=== PATIENT | female | born 1960 | race African-American/Black ===

== ENCOUNTER → 2017-10-17 | Day surgery (SDC) | payer OTHER ==
--- NOTE | 2017-10-21 14:15 | PATH ---
Surgical Pathology Report Patient Name: DOROTHEA ALONSO [facility]. Rec. #: [id number] /Age/Gender: 1960 (Age: 57) / F Account: [id number] Location: [facility] Taken: 10/17/2017 Received: 10/17/2017 Reported: 10/21/2017 Physicians: Hazel Dey Specimen(s) Received A: AXILLARY LYMPH NODE CORE BIOPSY AT .73CM B: RIGHT BREAST CORE BIOPSY AT 3.57 CM. Clinical History Palpable mass, nonpalpable lesion Ultrasound findings: Suspicious Final Diagnosis A. Axilla, lymph node, right, CorE biopsy: FRAGMENTS OF LYMPH NODE WITH MILD FOLLICULAR HYPERPLASIA. NO EVIDENCE OF INVOLVEMENT BY LYMPHOMA. SEE COMMENT. B. BREAST, RIGHT, CORE BIOPSY: Benign breast tissue with stromal fibrosis, microcysts, apocrine metaplasia, and periductal chronic inflammation. Comment: Part A, Flow cytometry immunophenotyping, performed on the concurrent sample ([id number]) did not detect clonal B cell populations or T-cell immunophenotypic aberrancies. This case was sent to Dr. Olaf Argueta from [facility], [place], [place] ([id number]) the diagnosis above reflects his opinion. Electronically Signed Tiffany Long M.D. Gross Description A. Received in formalin labeled "right axilla" are 3 cardona-yellow, cylindrical portions of fibroadipose tissue ranging from 1.4-1.7 cm in length and averaging 0.1 cm in diameter. The specimens are submitted in toto in one cassette. There is additional tissue received fresh and placed into RPMI solution sent to [facility] for flow cytometry. B. Received in formalin labeled "right 3:00," are 4 cardona-yellow fragments of fibroadipose tissue ranging from 0.2-0.5 cm in length and averaging 0.1 cm in diameter. The specimens are submitted in toto in one cassette. Total formalin fixation time: Between 6-10 hours 10/17/201710/17/2017
== END | disposition home or self-care (01) ==
LOC: JRADUS-SUR 10:36
PROVIDERS: ATTEND Family Medicine
PROC: 0HBT3ZX Excision of Right Breast, Percutaneous Approach, Diagnostic (ICD-10-PCS; principal; 2017-10-17)
PROC: 07D53ZX Extraction of Right Axillary Lymphatic, Percutaneous Approach, Diagnostic (ICD-10-PCS; 2017-10-17)
DX: N60.31 Fibrosclerosis of right breast (principal); N60.81 Other benign mammary dysplasias of right breast; R59.0 Localized enlarged lymph nodes
CPT/HCPCS: 19083; 19084

== ENCOUNTER 2019-04-09 10:48 | Inpatient (IN) | payer BC, OTHER ==
[2019-04-09] MEDS ORDERED: ALBUTEROL SO4 2.5/IPRATROPIUM 0.5 INH SOL 3 ML VIAL.NEB. NEB ONE ×3 (11:38→15:43)
[2019-04-09] MEDS ORDERED: methylPREDNISolone NA SUCC 125 MG/2 ML VIAL IVPB ONE (11:45)
--- NOTE | 2019-04-09 11:46 | PDOC ---
History of Present Illness - General Chief Complaint: Asthma Stated Complaint: CHEST PAIN/ ASTHMA Time Seen by Provider: 04/09/19 11:30 History Source: Patient Exam Limitations: No Limitations - History of Present Illness Initial Comments: 04/09/19 11:35 58-year-old female with history of frequent asthma exacerbation presents the emergency room with complaints of difficulty breathing, continual wheezing, coughing, and now with chest pain worsened with deep breathing and coughing. Patient states has seen Dr. Su, bi specialist in the past and had extra prednisone at home so on Tuesday and Tuesday she had taken 40 mg of prednisone. Patient also states has used her nebulizer for the past 2 days every 4-6 hours with no improvement. Is this a multiple visit Asthma Patient?: Yes Timing/Duration: reports: constant, getting worse Severity: reports: moderate Possible Cause: Yes: frequent episodes Modifying Factors: improves with: activity, albuterol inhaler, coughing Associated Symptoms: reports: chest pain/soreness, cough, shortness of breath, wheezing Past History - Travel Traveled outside of the country in the last 30 days: No Close contact w/someone who was outside of country & ill: No - Past Medical History Allergies/Adverse Reactions: Allergies Allergy/AdvReac Type Severity Reaction Status Date / Time gentamicin [Gentamicin] Allergy Verified 04/09/19 11:22 tobramycin Allergy Verified 04/09/19 11:22 Home Medications: Ambulatory Orders Albuterol Sulfate [Proair Hfa -] 1 - 2 inh PO TID PRN 04/10/15 Isosorbide Mononitrate [Imdur -] 30 mg PO DAILY 04/10/15 Losartan/Hydrochlorothiazide [Losartan-Hctz 100-25 mg Tab] 1 each PO DAILY 04/10 Montelukast Na [Singulair -] 10 mg PO HS 04/10/15 Nifedipine [Nifedical Xl] 30 mg PO DAILY 04/10/15 Nitroglycerin [Nitrostat] 0.4 mg SL PRN 04/10/15 predniSONE [Deltasone -] 40 mg PO TID 04/10/15 Anemia: Yes Asthma: Yes Cancer: No COPD: Yes HTN: Yes - Surgical History Abdominal Surgery: Yes - Immunization History Immunization Up to Date: Yes - Psycho Social/Smoking Cessation Hx Smoking Status: No Smoking History: Never smoked Have you smoked in the past 12 months: No Number of Cigarettes Smoked Daily: 0 Information on smoking cessation initiated: No Hx Alcohol Use: No Drug/Substance Use Hx: No Substance Use Type: None Patient Lives Alone: No Lives with/in: friend Review of Systems - Review of Systems Able to Perform ROS?: Yes Constitutional: No: Symptoms Reported HEENTM: No: Symptoms Reported Respiratory: Yes: Cough, Shortness of Breath, Wheezing Cardiac (ROS): Yes: Chest Pain ABD/GI: No: Symptoms Reported : No: Symptoms Reported Musculoskeletal: Yes: Muscle Pain Integumentary: No: Symptoms Reported Neurological: No: Symptoms reported Endocrine: No: Symptoms Reported Hematologic/Lymphatic: No: Symptoms Reported *Physical Exam - Vital Signs Last Vital Signs Temp Pulse Resp BP Pulse Ox 98.6 F 82 18 145/84 96 04/09/19 11:24 04/09/19 11:24 04/09/19 11:24 04/09/19 11:24 04/09/19 11:24 - Physical Exam General Appearance: Yes: Nourished, Appropriately Dressed. No: Apparent Distress HEENT: positive: EOMI, RAMU, TMs Normal, Pharynx Normal. negative: Pale Conjunctivae Neck: positive: Supple Respiratory/Chest: positive: Accessory Muscle Use (intercostal), Wheezing ( inspiratory and expiratory bilaterally). negative: Decreased Breath Sounds Cardiovascular: positive: Regular Rhythm, Regular Rate. negative: Murmur Gastrointestinal/Abdominal: positive: Soft. negative: Tenderness Extremity: positive: Normal Inspection Integumentary: positive: Normal Color, Warm, Moist Neurologic: positive: Motor Strength 5/5 (ambulatory) ED Treatment Course - LABORATORY CBC & Chemistry Diagram: 04/09/19 12:10 04/09/19 12:10 Medical Decision Making - Medical Decision Making 04/09/19 12:39 Chief complaint: Worsening wheezing shortness of breath and cough for the past 3 days unrelieved with prednisone and DuoNeb. Patient followed by Dr. Su bi specialist. Exam: Patient with mild respiratory distress along with assessment muscle usage and wheezing bilaterally inspiratory and expiratory. Patient speaking approximate 5-7 sentences and then pausing to catch her breath. Oxygen level 97-98% on room air Plan: Labs, EKG, chest x-ray Solu-Medrol DuoNeb 4 will consult bi specialist shortly 04/09/19 13:42 Laboratory Tests 04/09/19 04/09/19 12:10 12:10 WBC 8.1 Hgb 13.8 Hct 42.2 Absolute Neuts (auto) 4.6 Sodium 139 Potassium 4.0 Chloride 107 Carbon Dioxide 31 Anion Gap 0 L BUN 8.7 Creatinine 0.8 Est GFR (CKD-EPI)AfAm 93.53 Est GFR (CKD-EPI)NonAf 80.70 Random Glucose 84 Calcium 8.6 Total Bilirubin 0.5 AST 17 ALT 22 Alkaline Phosphatase 82 Creatine Kinase 190 Creatine Kinase Index 1.0 CK-MB (CK-2) 2.0 Troponin I < 0.02 Total Protein 7.1 Albumin 3.4 04/09/19 13:43 Found patient sleeping with an oxygen saturation of 94% on room air. Awoke patient for reexam and sats pulled up to 98%. Patient still with continual wheezing on inspiration left to the right lobe patient will go for chest x-ray and received 2 more DuoNeb's. Case discussed also with bi specialist who recommends admission and will consult on patient 04/09/19 15:59 CXR Shows no evidence of active pulmonary disease. Patient reevaluated and continues to complain of mild shortness of breath with minimal exertion and wheezing auscultated to the right lobe. Will discuss admission with medicine on- call 04/09/19 16:[address] angélica goyal to [facility]. Patient states just went to the bathroom in the ER had to stop twice to catch her breath patient's O2 sat 97% upon return from the restroom Discharge - Discharge Information Problems reviewed: Yes Clinical Impression/Diagnosis: Asthma exacerbation - Admission Yes - Follow up/Referral - Patient Discharge Instructions - Post Discharge Activity
[2019-04-09] MEDS ORDERED: methylPREDNISolone NA SUCC 125 MG/2 ML VIAL ONE (11:53)
[2019-04-09] MEDS: ALBUTEROL SO4 2.5/IPRATROPIUM 0.5 INH SOL 3 ML VIAL.NEB. NEB SCH ×6 (12:11→15:42)
[2019-04-09 12:38] LABS: BASO % 0.6 % (0-2.0); EOS % 3.5 % (0-4.5); HEMATOCRIT 42.2 % (32.4-45.2); HEMOGLOBIN 13.8 GM/dL (10.7-15.3); LYMPH % 32.7 % (8-40); MCH 25.8 pg (25.7-33.7); MCHC 32.6 g/dl (32.0-36.0); MEAN CELL VOLUME 79.2 fl (80-96); MEAN PLT VOLUME 8.5 fl (7.5-11.1); MONO % 6.1 % (3.8-10.2); NEUT % 57.1 % (42.8-82.8); PLATELET COUNT 242 K/MM3 (134-434); RBC 5.33 M/mm3 (3.60-5.2); RDW 14.7 % (11.6-15.6); WHITE BLOOD COUNT 8.1 K/mm3 (4.0-10.0)
[2019-04-09 13:10] LABS: ALBUMIN 3.4 g/dl (3.4-5.0); ALK PHOS 82 U/L (45-117); ANION GAP 0 MMOL/L (8-16); BILIRUBIN,TOTAL 0.5 mg/dL (0.2-1); BLOOD UREA NITROGEN 8.7 mg/dL (7-18); CALCIUM 8.6 mg/dL (8.5-10.1); CHLORIDE 107 mmol/L (98-107); CO2 31 mmol/L (21-32); CREATININE 0.8 mg/dL (0.55-1.3); GLUCOSE,RANDOM 84 mg/dL (74-106); SGOT/AST 17 U/L (15-37); SGPT/ALT 22 U/L (13-61); SODIUM 139 mmol/L (136-145); TOT PROT 7.1 g/dl (6.4-8.2)
--- NOTE | 2019-04-09 18:27 | HP ---
Admitting History and Physical - Primary Care Physician PCP: Laura Schmitz - Admission History of Present Illness: 58-year-old female with history of frequent asthma exacerbation presents the emergency room with complaints of difficulty breathing, continual wheezing, coughing, and now with chest pain worsened with deep breathing and coughing. Patient states has seen Dr. Su, silk printer in the past and had extra prednisone at home so on Tuesday and Tuesday she had taken 40 mg of prednisone. Patient also states has used her nebulizer for the past 2 days every 4-6 hours with no improvement. - Past Medical History ...LMP: 08/09/11 - Smoking History Smoking history: Never smoked Have you smoked in the past 12 months: No Aproximately how many cigarettes per day: 0 - Alcohol/Substance Use Hx Alcohol Use: No Home Medications - Allergies Allergies/Adverse Reactions: Allergies Allergy/AdvReac Type Severity Reaction Status Date / Time gentamicin [Gentamicin] Allergy Verified 04/09/19 11:22 tobramycin Allergy Verified 04/09/19 11:22 - Home Medications Home Medications: Ambulatory Orders Albuterol Sulfate [Proair Hfa -] 1 - 2 inh PO TID PRN 04/10/15 Isosorbide Mononitrate [Imdur -] 30 mg PO DAILY 04/10/15 Losartan/Hydrochlorothiazide [Losartan-Hctz 100-25 mg Tab] 1 each PO DAILY 04/10 Montelukast Na [Singulair -] 10 mg PO HS 04/10/15 Nifedipine [Nifedical Xl] 30 mg PO DAILY 04/10/15 Nitroglycerin [Nitrostat] 0.4 mg SL PRN 04/10/15 predniSONE [Deltasone -] 40 mg PO TID 04/10/15 Physical Examination Vital Signs: Vital Signs Temperature 98.5 F 04/09/19 17:12 Pulse Rate 88 04/09/19 17:12 Respiratory Rate 19 04/09/19 17:12 Blood Pressure 165/89 04/09/19 17:12 O2 Sat by Pulse Oximetry (%) 96 04/09/19 17:12 Constitutional: Yes: No Distress HENT: Yes: Atraumatic Neck: Yes: Supple Cardiovascular: Yes: Regular Rate and Rhythm Respiratory: Yes: CTA Bilaterally Gastrointestinal: Yes: Normal Bowel Sounds Extremities: Yes: WNL Neurological: Yes: Alert, Oriented Labs: CBC, BMP 04/09/19 12:10 04/09/19 12:10 Problem List - Problems (1) Asthma exacerbation Assessment/Plan: iv steroids prn nebs pulmonary consult Code(s): J45.901 - UNSPECIFIED ASTHMA WITH (ACUTE) EXACERBATION (2) HTN (hypertension) Assessment/Plan: on meds monitor Code(s): I10 - ESSENTIAL (PRIMARY) HYPERTENSION Assessment/Plan Laboratory Tests 04/09/19 04/09/19 12:10 12:10 WBC 8.1 RBC 5.33 H Hgb 13.8 Hct 42.2 MCV 79.2 L MCH 25.8 MCHC 32.6 RDW 14.7 Plt Count 242 MPV 8.5 Absolute Neuts (auto) 4.6 Neutrophils % 57.1 Lymphocytes % 32.7 Monocytes % 6.1 Eosinophils % 3.5 Basophils % 0.6 Nucleated RBC % 0 Sodium 139 Potassium 4.0 Chloride 107 Carbon Dioxide 31 Anion Gap 0 L BUN 8.7 Creatinine 0.8 Est GFR (CKD-EPI)AfAm 93.53 Est GFR (CKD-EPI)NonAf 80.70 Random Glucose 84 Calcium 8.6 Total Bilirubin 0.5 AST 17 ALT 22 Alkaline Phosphatase 82 Creatine Kinase 190 Creatine Kinase Index 1.0 CK-MB (CK-2) 2.0 Troponin I < 0.02 Total Protein 7.1 Albumin 3.4 Active Medications Generic Name Dose Route Start Last Admin Trade Name Freq PRN Reason Stop Dose Admin Albuterol Sulfate 1 amp 04/10/19 10:14 04/10/19 11:40 Ventolin 0.083% Nebulizer Soln - NEB 1 amp Q4H PRN Administration SHORT OF BREATH/WHEEZING Albuterol/Ipratropium 1 amp 04/10/19 14:00 04/10/19 14:30 Duoneb - NEB 1 amp RTID JUDY Administration Hydrochlorothiazide 25 mg 04/10/19 10:00 04/10/19 10:30 Hctz - PO 25 mg DAILY JUDY Administration Ibuprofen 600 mg 04/09/19 21:57 04/09/19 22:30 Motrin - PO 600 mg Q6H PRN Administration FEVER AND PAIN SCALE 6-10 Isosorbide Mononitrate 30 mg 04/10/19 10:00 04/10/19 10:30 Imdur - PO 30 mg DAILY JUDY Administration Losartan Potassium 100 mg 04/10/19 11:45 04/10/19 12:05 Cozaar - PO 100 mg DAILY JUDY Administration Methylprednisolone Sodium Succinate 60 mg 04/10/19 02:00 04/10/19 18:31 Solu-Medrol - IVPUSH 60 mg Q8H-IV JUDY Administration Montelukast Sodium 10 mg 04/09/19 22:00 04/09/19 21:09 Singulair - PO 10 mg HS JUDY Administration Nifedipine 30 mg 04/10/19 10:00 04/10/19 12:05 Procardia Xl - PO Not Given DAILY JUDY
[2019-04-09] MEDS ORDERED: ACETAMINOPHEN 500 MG TABLET (FP) PO ONE (18:38)
[2019-04-09] MEDS ORDERED: ACETAMINOPHEN 325 MG TABLET (FP) ONE (18:52)
[2019-04-09] MEDS ORDERED: ALBUTEROL SO4 2.5/IPRATROPIUM 0.5 INH SOL 3 ML VIAL.NEB. NEB PRN (19:09)
[2019-04-09] MEDS: MONTELUKAST NA 10 MG TABLET PO SCH (21:09)
[2019-04-09] MEDS: IBUPROFEN 600 MG TABLET (FP) PO PRN (22:30)
[2019-04-10] MEDS ORDERED: NIFEdipine E.R. 30 MG TABLET (FP) PO ONE (01:45)
[2019-04-10] MEDS: methylPREDNISolone NA SUCC 40 MG/1 ML VIAL IVPUSH SCH ×3 (01:55→18:31)
--- NOTE | 2019-04-10 02:09 | HOSP ---
Subjective - Review of Symptoms Events since last encounter: Hospitalist Encounter Notified by the RN that the patient's BP was elevated and she did not take her BP meds yesterday morning. Now being told that the patient is having midsternal chest pain and is SOB. Arrived to bedside, patient is asleep but arousable, oriented reports midsternal CP non radiating, after ambulating from the bathroom. PE- see EMR Plan: EKG Troponin Procardia 30mg po ordered prior Physical Examination Vital Signs: Vital Signs Temperature 98.4 F 04/09/19 23:00 Pulse Rate 94 H 04/10/19 01:34 Respiratory Rate 22 H 04/10/19 01:34 Blood Pressure 200/130 H 04/10/19 01:35 O2 Sat by Pulse Oximetry (%) 97 04/09/19 23:00 Constitutional: Yes: Mild Distress, Obese Eyes: Yes: WNL, Conjunctiva Clear, EOM Intact, PERRL HENT: Yes: WNL, Atraumatic, Normocephalic Neck: Yes: WNL, Supple, Trachea Midline Cardiovascular: Yes: WNL, Regular Rate and Rhythm, S1, S2 Respiratory: Yes: Rhonchi, SOB, SOB on Exertion, Wheezes Gastrointestinal: Yes: WNL, Normal Bowel Sounds, Soft, Abdomen, Obese Edema: No Peripheral Pulses WNL: Yes Neurological: Yes: WNL, Alert, Oriented, Cran Nerves II-XII Intact ...Motor Strength: WNL Psychiatric: Yes: WNL, Alert, Oriented Labs: CBC, BMP 04/09/19 12:10 04/09/19 12:10 Hospitalist Encounter Outcome: EKG reviewed SR with PVCs new compared to prior study Troponin < 0.02 Repeat BP 158/85, P 81, patient reports to RN she is feeling better Will continue to monitor Recommendations/Interventions: Consider transfer to telemetry if condition worsens Critical Care Total Critical Care Time (in minutes): 32 Critical Care Statement: The care of this patient involved high complexity decision making to prevent further life threatening deterioration of the patient 's condition and/or to evaluate & treat vital organ system(s) failure or risk of failure.
[2019-04-10 03:08] LABS: INR 1.06 (0.83-1.09); PROTHROMBIN TIME (PATIENT) 12.5 SEC (9.7-13.0)
[2019-04-10 03:11] LABS: ACTIVATED PTT 29.6 SECONDS (25.2-36.5)
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
[2019-04-10] MEDS ORDERED: PATIENT'S OWN MEDICATION (NON-FORMULARY) (Losartan/Hydrochlorothiazide [Losartan-Hctz 100- PO SCH (10:00)
[2019-04-10] MEDS ORDERED: FLU VACCINE QUAD 60 MCG/0.5 ML (MDV 19-20) IM ONE (10:00)
[2019-04-10] MEDS ORDERED: LOSARTAN POTASSIUM 100 MG TABLET PO SCH (10:00)
[2019-04-10] MEDS ORDERED: PT OWN MED DRAWER 7, Y5N ONE (10:09)
--- NOTE | 2019-04-10 10:13 | EKG ---
Test Reason : Blood Pressure : / mmHG Vent. Rate : 084 BPM Atrial Rate : 084 BPM P-R Int : 136 ms QRS Dur : 080 ms QT Int : 368 ms P-R-T Axes : 068 056 061 degrees QTc Int : 434 ms POOR DATA QUALITY, INTERPRETATION MAY BE ADVERSELY AFFECTED NORMAL SINUS RHYTHM BIATRIAL ENLARGEMENT LEFT VENTRICULAR HYPERTROPHY T WAVE ABNORMALITY, CONSIDER LATERAL ISCHEMIA ABNORMAL ECG Confirmed by Kevin Cain MD ([id number]) on 04/10/2019 10:13:16 AM Referred By: Confirmed By:Kevin Cain MD
--- NOTE | 2019-04-10 10:21 | PN ---
Teaching Attending Note Name of Resident: Jennifer Miles ATTENDING PHYSICIAN STATEMENT I saw and evaluated the patient. I reviewed the resident's note and discussed the case with the resident. I agree with the resident's findings and plan as documented. SUBJECTIVE: Patient well known to me from the outpatient setting. Moderate persistent asthma. No intubations, not steroid dependent, PEF > 300. Mild OSAS diagnosed by NPSG in 10/2015: RDI 13. 4 with moderate O2 desaturation to 75%. Prescribed CPAP @ 11 cm H2O which she could not tolerate. Had a MAD fabricated which she does not use. Additional history of vertigo/ Meniere's disease, HTN, uncoiled aorta, obesity, and MN (non obstructive). Admitted via the ER due to 3 days worsening SOB that have not been responding to her medications. No travel history or sick contacts. (+) recent mold exposure. Intake & Output 04/07/19 04/08/19 04/09/19 04/10/19 23:59 23:59 23:59 23:59 Intake Total 200 200 Balance 200 200 Weight 236 lb 4.8 oz Last Vital Signs Temp Pulse Resp BP Pulse Ox 99.1 F 87 20 158/70 97 04/10/19 07:50 04/10/19 07:50 04/10/19 07:50 04/10/19 07:50 04/09/19 23:00 Active Medications Albuterol Sulfate (Ventolin 0.083% Nebulizer Soln -) 1 amp NEB Q4H PRN PRN Reason: SHORT OF BREATH/WHEEZING Albuterol/Ipratropium (Duoneb -) 1 amp NEB RTID [facility] Hydrochlorothiazide (Hctz -) 25 mg PO DAILY [facility] Ibuprofen (Motrin -) 600 mg PO Q6H PRN PRN Reason: FEVER Last Admin: 04/09/19 22:30 Dose: 600 mg Isosorbide Mononitrate (Imdur -) 30 mg PO DAILY [facility] Losartan Potassium (Losartan Potassium) 100 mg PO DAILY [facility] Methylprednisolone Sodium Succinate (Solu-Medrol -) 60 mg IVPUSH Q8H-IV [facility] Last Admin: 04/10/19 01:55 Dose: 60 mg Montelukast Sodium (Singulair -) 10 mg PO HS [facility] Last Admin: 04/09/19 21:09 Dose: 10 mg Nifedipine (Procardia Xl -) 30 mg PO DAILY [facility] Constitutional: Yes: Mild Distress, Obese Eyes: Yes: WNL, Conjunctiva Clear, EOM Intact, PERRL HENT: Yes: WNL, Atraumatic, Normocephalic Neck: Yes: WNL, Supple, Trachea Midline Cardiovascular: Yes: WNL, Regular Rate and Rhythm, S1, S2 Respiratory: Yes: Expiratory wheezing, bilateral rhonchi, SOB, SOB on Exertion. Gastrointestinal: Yes: WNL, Normal Bowel Sounds, Soft, Abdomen, Obese Edema: No Peripheral Pulses WNL: Yes Neurological: Yes: WNL, Non-focal ...Motor Strength: WNL Psychiatric: Yes: WNL, Alert, Oriented Labs: Laboratory Results - last 24 hr 04/09/19 04/09/19 04/10/19 12:10 12:10 02:15 WBC 8.1 RBC 5.33 H Hgb 13.8 Hct 42.2 MCV 79.2 L MCH 25.8 MCHC 32.6 RDW 14.7 Plt Count 242 MPV 8.5 Absolute Neuts (auto) 4.6 Neutrophils % 57.1 Lymphocytes % 32.7 Monocytes % 6.1 Eosinophils % 3.5 Basophils % 0.6 Nucleated RBC % 0 PT with INR INR PTT (Actin FS) Sodium 139 Potassium 4.0 Chloride 107 Carbon Dioxide 31 Anion Gap 0 L BUN 8.7 Creatinine 0.8 Est GFR (CKD-EPI)AfAm 93.53 Est GFR (CKD-EPI)NonAf 80.70 Random Glucose 84 Calcium 8.6 Total Bilirubin 0.5 AST 17 ALT 22 Alkaline Phosphatase 82 Creatine Kinase 190 Creatine Kinase Index 1.0 CK-MB (CK-2) 2.0 Troponin I < 0.02 < 0.02 Total Protein 7.1 Albumin 3.4 04/10/19 02:15 WBC RBC Hgb Hct MCV MCH MCHC RDW Plt Count MPV Absolute Neuts (auto) Neutrophils % Lymphocytes % Monocytes % Eosinophils % Basophils % Nucleated RBC % PT with INR 12.50 INR 1.06 PTT (Actin FS) 29.6 Sodium Potassium Chloride Carbon Dioxide Anion Gap BUN Creatinine Est GFR (CKD-EPI)AfAm Est GFR (CKD-EPI)NonAf Random Glucose Calcium Total Bilirubin AST ALT Alkaline Phosphatase Creatine Kinase Creatine Kinase Index CK-MB (CK-2) Troponin I Total Protein Albumin - Problems (1) Asthma exacerbation Code(s): J45.901 - UNSPECIFIED ASTHMA WITH (ACUTE) EXACERBATION IMP: AE of Moderate Persistent Asthma Suspected Viral Syndrome Do not suspect PNA Mild OSAS with Moderate oxygen desaturation, currently not on treatment Vertigo/ Meniere's disease HTN History of an uncoiled aorta Obesity PLAN: Medrol BD TX standing and PRN Daily AM PEF measurement O2 as needed Monitor off ABX VTE prophylaxis Singulair Need to reassess IgE level after DC Will need formal re-evaluation of OSAS after DC No smoking counseled Will follow Thank you. Dr Sofia
[2019-04-10] MEDS: ISOSORBIDE MONONITRATE 30 MG TAB.SR.24H (FP) PO SCH (10:30)
[2019-04-10] MEDS: HYDROCHLOROTHIAZIDE 25 MG TABLET (FP) PO SCH (10:30)
--- NOTE | 2019-04-10 11:36 | EKG ---
Test Reason : Blood Pressure : / mmHG Vent. Rate : 091 BPM Atrial Rate : 091 BPM P-R Int : 140 ms QRS Dur : 084 ms QT Int : 354 ms P-R-T Axes : 063 037 091 degrees QTc Int : 435 ms SINUS RHYTHM WITH OCCASIONAL PREMATURE VENTRICULAR COMPLEXES POSSIBLE LEFT ATRIAL ENLARGEMENT LEFT VENTRICULAR HYPERTROPHY NONSPECIFIC T WAVE ABNORMALITY ABNORMAL ECG WHEN COMPARED WITH ECG OF 09-APR-2019 10:52, PREMATURE VENTRICULAR COMPLEXES ARE NOW PRESENT NONSPECIFIC T WAVE ABNORMALITY, IMPROVED IN INFERIOR LEADS Confirmed by Kevin Cain MD ([id number]) on 04/10/2019 11:35:42 AM Referred By: Confirmed By:Kevin Cain MD
[2019-04-10] MEDS: ALBUTEROL SO4 0.083% IH SOL 2.5 MG/3 ML VIAL.NEB. NEB PRN (11:40)
[2019-04-10] MEDS: NIFEdipine E.R. 30 MG TABLET (FP) PO SCH (12:05)
[2019-04-10] MEDS: LOSARTAN POTASSIUM 50 MG TABLET (FP) PO SCH (12:05)
[2019-04-10] MEDS: ALBUTEROL SO4 2.5/IPRATROPIUM 0.5 INH SOL 3 ML VIAL.NEB. NEB SCH ×2 (14:30→20:15)
--- NOTE | 2019-04-10 19:40 | PN ---
Progress Note, Physician - Current Medication List Current Medications: Active Medications Albuterol Sulfate (Ventolin 0.083% Nebulizer Soln -) 1 amp NEB Q4H PRN PRN Reason: SHORT OF BREATH/WHEEZING Last Admin: 04/10/19 11:40 Dose: 1 amp Albuterol/Ipratropium (Duoneb -) 1 amp NEB RTID [facility] Last Admin: 04/10/19 14:30 Dose: 1 amp Hydrochlorothiazide (Hctz -) 25 mg PO DAILY [facility] Last Admin: 04/10/19 10:30 Dose: 25 mg Ibuprofen (Motrin -) 600 mg PO Q6H PRN PRN Reason: FEVER AND PAIN SCALE 6-10 Last Admin: 04/09/19 22:30 Dose: 600 mg Isosorbide Mononitrate (Imdur -) 30 mg PO DAILY [facility] Last Admin: 04/10/19 10:30 Dose: 30 mg Losartan Potassium (Cozaar -) 100 mg PO DAILY [facility] Last Admin: 04/10/19 12:05 Dose: 100 mg Methylprednisolone Sodium Succinate (Solu-Medrol -) 60 mg IVPUSH Q8H-IV [facility] Last Admin: 04/10/19 18:31 Dose: 60 mg Montelukast Sodium (Singulair -) 10 mg PO HS [facility] Last Admin: 04/09/19 21:09 Dose: 10 mg Nifedipine (Procardia Xl -) 30 mg PO DAILY [facility] Last Admin: 04/10/19 12:05 Dose: Not Given - Objective Vital Signs: Vital Signs Temperature 98.3 F 04/10/19 18:00 Pulse Rate 108 H 04/10/19 18:00 Respiratory Rate 20 04/10/19 18:00 Blood Pressure 155/114 H 04/10/19 18:00 O2 Sat by Pulse Oximetry (%) 97 04/09/19 23:00 Constitutional: Yes: No Distress HENT: Yes: Atraumatic Neck: Yes: Supple Cardiovascular: Yes: Regular Rate and Rhythm Respiratory: Yes: CTA Bilaterally Gastrointestinal: Yes: Normal Bowel Sounds Extremities: Yes: WNL Edema: No Neurological: Yes: Alert, Oriented Labs: CBC, BMP 04/09/19 12:10 04/09/19 12:10 INR, PTT INR 1.06 (0.83-1.09) 04/10/19 02:15 Problem List - Problems (1) Asthma exacerbation Assessment/Plan: iv steroids prn nebs pulmonary consult Code(s): J45.901 - UNSPECIFIED ASTHMA WITH (ACUTE) EXACERBATION (2) HTN (hypertension) Assessment/Plan: on meds monitor will get cardio consult Code(s): I10 - ESSENTIAL (PRIMARY) HYPERTENSION
[2019-04-10] MEDS: MONTELUKAST NA 10 MG TABLET PO SCH (21:58)
[2019-04-10] MEDS: IBUPROFEN 600 MG TABLET (FP) PO PRN (22:02)
[2019-04-11] MEDS: methylPREDNISolone NA SUCC 40 MG/1 ML VIAL IVPUSH SCH ×4 (02:31→22:04)
[2019-04-11] MEDS: ALBUTEROL SO4 2.5/IPRATROPIUM 0.5 INH SOL 3 ML VIAL.NEB. NEB SCH ×3 (08:11→20:45)
[2019-04-11] MEDS: LOSARTAN POTASSIUM 50 MG TABLET (FP) PO SCH (09:37)
[2019-04-11] MEDS: ISOSORBIDE MONONITRATE 30 MG TAB.SR.24H (FP) PO SCH (09:37)
[2019-04-11] MEDS: HYDROCHLOROTHIAZIDE 25 MG TABLET (FP) PO SCH (09:37)
[2019-04-11] MEDS: NIFEdipine E.R. 30 MG TABLET (FP) PO SCH (09:37)
--- NOTE | 2019-04-11 13:09 | PN ---
Progress Note, Physician History of Present Illness: pulmonary alert,feeling better,less dyspneic - Current Medication List Current Medications: Active Medications Albuterol Sulfate (Ventolin 0.083% Nebulizer Soln -) 1 amp NEB Q4H PRN PRN Reason: SHORT OF BREATH/WHEEZING Last Admin: 04/10/19 11:40 Dose: 1 amp Albuterol/Ipratropium (Duoneb -) 1 amp NEB RTID [facility] Last Admin: 04/11/19 08:11 Dose: 1 amp Hydrochlorothiazide (Hctz -) 25 mg PO DAILY [facility] Last Admin: 04/11/19 09:37 Dose: 25 mg Ibuprofen (Motrin -) 600 mg PO Q6H PRN PRN Reason: FEVER AND PAIN SCALE 6-10 Last Admin: 04/10/19 22:02 Dose: 600 mg Isosorbide Mononitrate (Imdur -) 30 mg PO DAILY [facility] Last Admin: 04/11/19 09:37 Dose: 30 mg Losartan Potassium (Cozaar -) 100 mg PO DAILY [facility] Last Admin: 04/11/19 09:37 Dose: 100 mg Methylprednisolone Sodium Succinate (Solu-Medrol -) 60 mg IVPUSH Q8H-IV [facility] Last Admin: 04/11/19 10:47 Dose: Not Given Montelukast Sodium (Singulair -) 10 mg PO HS [facility] Last Admin: 04/10/19 21:58 Dose: 10 mg Nifedipine (Procardia Xl -) 30 mg PO DAILY [facility] Last Admin: 04/11/19 09:37 Dose: 30 mg - Objective Vital Signs: Vital Signs Temperature 98.3 F 04/11/19 09:42 Pulse Rate 90 04/11/19 09:42 Respiratory Rate 20 04/11/19 09:42 Blood Pressure 158/98 04/11/19 09:42 O2 Sat by Pulse Oximetry (%) 96 04/10/19 10:30 Constitutional: Yes: Well Nourished, Calm Eyes: Yes: WNL HENT: Yes: WNL Neck: Yes: WNL Cardiovascular: Yes: Regular Rate and Rhythm, S1, S2 Respiratory: Yes: Wheezes (few wheezes) Gastrointestinal: Yes: Normal Bowel Sounds, Soft Extremities: Yes: WNL Edema: No Labs: Problem List - Problems (1) HTN (hypertension) Code(s): I10 - ESSENTIAL (PRIMARY) HYPERTENSION (2) Vertigo Code(s): R42 - DIZZINESS AND GIDDINESS Assessment/Plan - Problems (1) Asthma exacerbation Code(s): J45.901 - UNSPECIFIED ASTHMA WITH (ACUTE) EXACERBATION IMP: AE of Moderate Persistent Asthma improving Suspected Viral Syndrome Do not suspect PNA Mild OSAS with Moderate oxygen desaturation, currently not on treatment Vertigo/ Meniere's disease HTN History of an uncoiled aorta Obesity PLAN: Medrol taper BD TX standing and PRN Daily AM PEF measurement O2 as needed VTE prophylaxis Singulair Will need formal re-evaluation of OSAS after DC DR BERNAL
[2019-04-11] MEDS: IBUPROFEN 600 MG TABLET (FP) PO PRN (15:00)
[2019-04-11] MEDS ORDERED: methylPREDNISolone NA SUCC 40 MG/1 ML VIAL IVPUSH SCH (15:02)
--- NOTE | 2019-04-11 15:36 | CON.CARD ---
Consult Consult Specialty:: Cardiology Referred by:: Laura Schmitz MD Reason for Consultation:: H/o HI and nonobstructive CAD, chest pain, HTN - History of Present Illness Chief Complaint: Chest pain, hypertensive urgency History of Present Illness: Patient is 58 yo AAF w/ h/o moderate persistent asthma w/o h/o intubations, not steroid dependent, PEF > 300, also mild OSAS diagnosed by NPSG in 10/2015: RDI 13. 4 with moderate O2 desaturation to 75%. Prescribed CPAP @ 11 cm H2O which she could not tolerate. Had a MAD fabricated which she does not use, also history of vertigo/ Meniere's disease, HTN, uncoiled aorta, obesity, and [place] ( non obstructive). Admitted via the ER due to 3 days worsening SOB that have not been responding to her medications, (+) recent mold exposure. She experienced episode of sharp retrosternal chest pain associated with dyspnea in context of elevated BP 210/124, denies near or true syncope, palpitations, orthopnea, PND or LE edema. - History Source History Provided By: Patient Limitations to Obtaining History: No Limitations - Past Medical History Cardio/Vascular: Yes: CAD, HTN Pulmonary: Yes: Asthma, COPD, Sleep Apnea ...LMP: 08/09/11 - Alcohol/Substance Use Hx Alcohol Use: No - Smoking History Smoking history: Never smoked Have you smoked in the past 12 months: No Aproximately how many cigarettes per day: 0 - Social History Usual Living Arrangement: Alone ADL: Independent History of Recent Travel: No Home Medications - Allergies Allergies/Adverse Reactions: Allergies Allergy/AdvReac Type Severity Reaction Status Date / Time gentamicin [Gentamicin] Allergy Verified 04/09/19 11:22 tobramycin Allergy Verified 04/09/19 11:22 - Home Medications Home Medications: Ambulatory Orders Albuterol Sulfate [Proair Hfa -] 1 - 2 inh PO TID PRN 04/10/15 Isosorbide Mononitrate [Imdur -] 30 mg PO DAILY 04/10/15 Losartan/Hydrochlorothiazide [Losartan-Hctz 100-25 mg Tab] 1 each PO DAILY 04/10 Montelukast Na [Singulair -] 10 mg PO HS 04/10/15 Nifedipine [Nifedical Xl] 30 mg PO DAILY 04/10/15 Nitroglycerin [Nitrostat] 0.4 mg SL PRN 04/10/15 predniSONE [Deltasone -] 40 mg PO TID 04/10/15 Review of Systems - Review of Systems Cardiovascular: reports: Chest Pain Respiratory: reports: SOB, SOB on Exertion, Wheezing Vital Signs: Vital Signs Temperature 98.3 F 04/11/19 09:42 Pulse Rate 90 04/11/19 09:42 Respiratory Rate 20 04/11/19 09:42 Blood Pressure 158/98 04/11/19 09:42 O2 Sat by Pulse Oximetry (%) 96 04/10/19 10:30 Constitutional: Yes: No Distress, Calm Neck: Yes: Supple Respiratory: Yes: Regular, Diminished, Wheezes Gastrointestinal: Yes: Normal Bowel Sounds, Soft, Abdomen, Obese Cardiovascular: Yes: Regular Rate and Rhythm JVD: No Carotid Bruit: No PMI: Non-Displaced Heart Sounds: Yes: S1, S2 Edema: No - Other Data Labs, Other Data: CBC, BMP 04/09/19 12:10 04/09/19 12:10 INR, PTT INR 1.06 (0.83-1.09) 04/10/19 02:15 NSR @ 91 LVH, PVC Ejection Fraction %: LVEF > or = 40 % Imaging - Results Chest X-ray: Report Reviewed (NAD) Problem List - Problems (1) Old myocardial infarction Code(s): I25.2 - OLD MYOCARDIAL INFARCTION (2) Asthma exacerbation Code(s): J45.901 - UNSPECIFIED ASTHMA WITH (ACUTE) EXACERBATION Qualifiers: Asthma severity: moderate (3) HTN (hypertension) Code(s): I10 - ESSENTIAL (PRIMARY) HYPERTENSION Qualifiers: Hypertension type: essential hypertension Qualified Code(s): I10 - Essential (primary) hypertension (4) SUSAN (obstructive sleep apnea) Code(s): G47.33 - OBSTRUCTIVE SLEEP APNEA (ADULT) (PEDIATRIC) (5) Chest pain Code(s): R07.9 - CHEST PAIN, UNSPECIFIED Qualifiers: Ischemic chest pain type: stable angina pectoris Assessment/Plan 1. Chest pain syndrome h/o nonobstructive CAD 2. AE of moderate persistent asthma with suspected viral syndrome 3. Mild OSAS with moderate oxygen desaturation, currently not on treatment 4. HTN urgency 5. Vertigo/ Meniere's disease 6. History of an uncoiled aorta 7. Obesity PLAN: 1. Ruled out for [place], check echocardiogram to assess ventricular and valve fxn 2. IV steroid taper with GI protection, BD, O2 as needed, Singulair, will need formal re-evaluation of OSAS after DC 3. Once asthma flare abates, would perform dobutamine echo to r/o CAD/ischemia 4. Continue Imdur 30 qd, Hyzaar 100/25 qd, Procardia XL 30 qd, NTG as needed, d/ c Motrin 5. Thank you for consultative opportunity, further recommenations to follow
[2019-04-11 16:19] VITALS: BMI 38.0
--- NOTE | 2019-04-11 18:07 | PN ---
Progress Note, Physician - Current Medication List Current Medications: Active Medications Albuterol Sulfate (Ventolin 0.083% Nebulizer Soln -) 1 amp NEB Q4H PRN PRN Reason: SHORT OF BREATH/WHEEZING Last Admin: 04/10/19 11:40 Dose: 1 amp Albuterol/Ipratropium (Duoneb -) 1 amp NEB RTID [facility] Last Admin: 04/11/19 14:18 Dose: 1 amp Hydrochlorothiazide (Hctz -) 25 mg PO DAILY [facility] Last Admin: 04/11/19 09:37 Dose: 25 mg Ibuprofen (Motrin -) 600 mg PO Q6H PRN PRN Reason: FEVER AND PAIN SCALE 6-10 Last Admin: 04/11/19 15:00 Dose: 600 mg Isosorbide Mononitrate (Imdur -) 30 mg PO DAILY [facility] Last Admin: 04/11/19 09:37 Dose: 30 mg Losartan Potassium (Cozaar -) 100 mg PO DAILY [facility] Last Admin: 04/11/19 09:37 Dose: 100 mg Methylprednisolone Sodium Succinate (Solu-Medrol -) 40 mg IVPUSH Q8H-IV [facility] Last Admin: 04/11/19 17:59 Dose: 40 mg Montelukast Sodium (Singulair -) 10 mg PO HS [facility] Last Admin: 04/10/19 21:58 Dose: 10 mg Nifedipine (Procardia Xl -) 30 mg PO DAILY [facility] Last Admin: 04/11/19 09:37 Dose: 30 mg - Objective Vital Signs: Vital Signs Temperature 98.9 F 04/11/19 15:52 Pulse Rate 87 04/11/19 15:52 Respiratory Rate 20 04/11/19 15:52 Blood Pressure 156/85 04/11/19 15:52 O2 Sat by Pulse Oximetry (%) 96 04/11/19 09:00 Constitutional: Yes: No Distress HENT: Yes: Atraumatic Neck: Yes: Supple Cardiovascular: Yes: Regular Rate and Rhythm Respiratory: Yes: CTA Bilaterally Gastrointestinal: Yes: Normal Bowel Sounds Extremities: Yes: WNL Edema: No Peripheral Pulses WNL: Yes Neurological: Yes: Alert, Oriented Labs: CBC, BMP 04/09/19 12:10 04/09/19 12:10 INR, PTT INR 1.06 (0.83-1.09) 04/10/19 02:15 Problem List - Problems (1) Asthma exacerbation Assessment/Plan: iv steroids...taper prn nebs pulmonary consult Code(s): J45.901 - UNSPECIFIED ASTHMA WITH (ACUTE) EXACERBATION Qualifiers: Asthma severity: moderate (2) HTN (hypertension) Assessment/Plan: on meds monitor will get cardio consult Code(s): I10 - ESSENTIAL (PRIMARY) HYPERTENSION Qualifiers: Hypertension type: essential hypertension Qualified Code(s): I10 - Essential (primary) hypertension (3) SUSAN (obstructive sleep apnea) Code(s): G47.33 - OBSTRUCTIVE SLEEP APNEA (ADULT) (PEDIATRIC)
[2019-04-11] MEDS ORDERED: ACETAMINOPHEN 325 MG TABLET (FP) PO PRN (18:30)
[2019-04-11] MEDS: MONTELUKAST NA 10 MG TABLET PO SCH (22:04)
[2019-04-12] MEDS: ALBUTEROL SO4 0.083% IH SOL 2.5 MG/3 ML VIAL.NEB. NEB PRN (02:55)
[2019-04-12] MEDS: ALBUTEROL SO4 2.5/IPRATROPIUM 0.5 INH SOL 3 ML VIAL.NEB. NEB SCH ×3 (08:11→19:59)
--- NOTE | 2019-04-12 09:10 | PN ---
Progress Note, Physician History of Present Illness: Dyspnea, wheezes improving, no further chest pressure, BP with improved control. - Current Medication List Current Medications: Active Medications Acetaminophen (Tylenol -) 650 mg PO Q4H PRN PRN Reason: PAIN LEVEL 4 - 6 Last Admin: 04/12/19 04:00 Dose: 650 mg Albuterol Sulfate (Ventolin 0.083% Nebulizer Soln -) 1 amp NEB Q4H PRN PRN Reason: SHORT OF BREATH/WHEEZING Last Admin: 04/12/19 02:55 Dose: 1 amp Albuterol/Ipratropium (Duoneb -) 1 amp NEB RTID [facility] Last Admin: 04/12/19 08:11 Dose: 1 amp Hydrochlorothiazide (Hctz -) 25 mg PO DAILY [facility] Last Admin: 04/11/19 09:37 Dose: 25 mg Isosorbide Mononitrate (Imdur -) 30 mg PO DAILY [facility] Last Admin: 04/11/19 09:37 Dose: 30 mg Losartan Potassium (Cozaar -) 100 mg PO DAILY [facility] Last Admin: 04/11/19 09:37 Dose: 100 mg Methylprednisolone Sodium Succinate (Solu-Medrol -) 40 mg IVPUSH BID [facility] Last Admin: 04/11/19 22:04 Dose: 40 mg Montelukast Sodium (Singulair -) 10 mg PO HS [facility] Last Admin: 04/11/19 22:04 Dose: 10 mg Nifedipine (Procardia Xl -) 30 mg PO DAILY [facility] Last Admin: 04/11/19 09:37 Dose: 30 mg - Objective Vital Signs: Vital Signs Temperature 98.4 F 04/12/19 06:00 Pulse Rate 93 H 04/12/19 06:00 Respiratory Rate 20 04/12/19 06:00 Blood Pressure 146/79 04/12/19 06:00 O2 Sat by Pulse Oximetry (%) 96 04/11/19 21:00 Constitutional: Yes: No Distress, Calm Neck: Yes: Supple Cardiovascular: Yes: Regular Rate and Rhythm Respiratory: Yes: Regular, CTA Bilaterally Gastrointestinal: Yes: Normal Bowel Sounds, Soft Edema: No Labs: CBC, BMP 04/09/19 12:10 04/09/19 12:10 INR, PTT INR 1.06 (0.83-1.09) 04/10/19 02:15 Problem List - Problems (1) Old myocardial infarction Code(s): I25.2 - OLD MYOCARDIAL INFARCTION (2) Asthma exacerbation Code(s): J45.901 - UNSPECIFIED ASTHMA WITH (ACUTE) EXACERBATION Qualifiers: Asthma severity: moderate (3) HTN (hypertension) Code(s): I10 - ESSENTIAL (PRIMARY) HYPERTENSION Qualifiers: Hypertension type: essential hypertension Qualified Code(s): I10 - Essential (primary) hypertension (4) SUSAN (obstructive sleep apnea) Code(s): G47.33 - OBSTRUCTIVE SLEEP APNEA (ADULT) (PEDIATRIC) (5) Chest pain Code(s): R07.9 - CHEST PAIN, UNSPECIFIED Qualifiers: Ischemic chest pain type: stable angina pectoris Assessment/Plan 1. Chest pain syndrome h/o nonobstructive CAD 2. AE of moderate persistent asthma with suspected viral syndrome 3. Mild OSAS with moderate oxygen desaturation, currently not on treatment 4. HTN urgency 5. Vertigo/Meniere's disease 6. History of an uncoiled aorta 7. Obesity PLAN: 1. Ruled out for [place], check echocardiogram to assess ventricular and valve fxn 2. IV steroid taper with GI protection, BD, O2 as needed, Singulair, will need formal re-evaluation of OSAS after DC 3. Once asthma flare abates, would perform dobutamine echo to r/o CAD/ischemia, may be performed as outpatient 4. Continue Imdur 30 qd, Hyzaar 100/25 qd, increase Procardia XL 60 qd, NTG as needed, d/adelita Motrin
--- NOTE | 2019-04-12 10:04 | PN ---
Progress Note (short form) - Note Progress Note: Feels better today. Less SOB and wheezing. No CP. Intake & Output 04/09/19 04/10/19 04/11/19 04/12/19 23:59 23:59 23:59 23:59 Intake Total 200 1000 1280 200 Balance 200 1000 1280 200 Weight 236 lb 4.8 oz 236 lb Last Vital Signs Temp Pulse Resp BP Pulse Ox 98.4 F 93 H 20 146/79 96 04/12/19 06:00 04/12/19 06:00 04/12/19 06:00 04/12/19 06:00 04/11/19 21:00 Active Medications Acetaminophen (Tylenol -) 650 mg PO Q4H PRN PRN Reason: PAIN LEVEL 4 - 6 Last Admin: 04/12/19 04:00 Dose: 650 mg Albuterol Sulfate (Ventolin 0.083% Nebulizer Soln -) 1 amp NEB Q4H PRN PRN Reason: SHORT OF BREATH/WHEEZING Last Admin: 04/12/19 02:55 Dose: 1 amp Albuterol/Ipratropium (Duoneb -) 1 amp NEB RTID [facility] Last Admin: 04/12/19 08:11 Dose: 1 amp Hydrochlorothiazide (Hctz -) 25 mg PO DAILY [facility] Last Admin: 04/11/19 09:37 Dose: 25 mg Isosorbide Mononitrate (Imdur -) 30 mg PO DAILY [facility] Last Admin: 04/11/19 09:37 Dose: 30 mg Losartan Potassium (Cozaar -) 100 mg PO DAILY [facility] Last Admin: 04/11/19 09:37 Dose: 100 mg Methylprednisolone Sodium Succinate (Solu-Medrol -) 40 mg IVPUSH BID [facility] Last Admin: 04/11/19 22:04 Dose: 40 mg Montelukast Sodium (Singulair -) 10 mg PO HS [facility] Last Admin: 04/11/19 22:04 Dose: 10 mg Nifedipine (Procardia Xl -) 30 mg PO DAILY [facility] Last Admin: 04/11/19 09:37 Dose: 30 mg Constitutional: Yes: NAD, Obese Eyes: Yes: WNL, Conjunctiva Clear, EOM Intact, PERRL HENT: Yes: WNL, Atraumatic, Normocephalic Neck: Yes: WNL, Supple, Trachea Midline Cardiovascular: Yes: WNL, Regular Rate and Rhythm, S1, S2 Respiratory: Yes: Few scattered expiratory wheezing, bilateral rhonchi Gastrointestinal: Yes: WNL, Normal Bowel Sounds, Soft, Abdomen, Obese Edema: No Peripheral Pulses WNL: Yes Neurological: Yes: WNL, Non-focal ...Motor Strength: WNL Psychiatric: Yes: WNL, Alert, Oriented Labs: - Problems (1) Asthma exacerbation Code(s): J45.901 - UNSPECIFIED ASTHMA WITH (ACUTE) EXACERBATION IMP: AE of Moderate Persistent Asthma Suspected Viral Syndrome Do not suspect PNA Mild OSAS with Moderate oxygen desaturation, currently not on treatment Vertigo/ Meniere's disease HTN History of an uncoiled aorta Obesity PLAN: Medrol at current dose; can likely change to Prednisone tomorrow BD TX standing and PRN Daily AM PEF measurement O2 as needed Monitor off ABX VTE prophylaxis Singulair Need to reassess IgE level after DC Will need formal re-evaluation of OSAS after DC No smoking counseled Possible DC by tomorrow if improved / stable Dr Sofia
[2019-04-12] MEDS: LOSARTAN POTASSIUM 50 MG TABLET (FP) PO SCH (10:34)
[2019-04-12] MEDS: NIFEdipine E.R. 30 MG TABLET (FP) PO SCH (10:34)
[2019-04-12] MEDS: ISOSORBIDE MONONITRATE 30 MG TAB.SR.24H (FP) PO SCH (10:34)
[2019-04-12] MEDS: methylPREDNISolone NA SUCC 40 MG/1 ML VIAL IVPUSH SCH ×2 (10:34→22:37)
[2019-04-12] MEDS: HYDROCHLOROTHIAZIDE 25 MG TABLET (FP) PO SCH (10:34)
--- NOTE | 2019-04-12 12:21 | ECHO ---
Name: ANDREW HANSON, DOROTHEA Exam:Adult Echocardiogram Study Date: 04/12/2019 08:22 AM Age: 58 yrs Reason For Study: chest pain h/o PA Height: 66 in Weight: 236 lb BSA: 2.1 m2 MMode/2D Measurements & Calculations IVSd: 1.0 cm Ao root diam: 2.7 cm LVIDd: 3.1 cm LA dimension: 2.8 cm LVIDs: 2.1 cm LVPWd: 1.1 cm LVPWs: 1.5 cm EDV(Teich): 37.2 ml ESV(Teich): 13.6 ml LVOT diam: 1.9 cm TAPSE: 1.7 cm RV S Aime: 17.8 cm/sec Doppler Measurements & Calculations MV E max aime: 44.1 cm/sec Ao V2 max: 140.2 cm/sec MV A max aime: 81.5 cm/sec Ao max P.9 mmHg MV E/A: 0.54 Ao V2 mean: 89.7 cm/sec MV dec time: 0.12 sec Ao mean P.0 mmHg Ao V2 VTI: 25.2 cm PATY(I,D): 2.7 cm2 PATY(V,D): 2.9 cm2 LV V1 max P.3 mmHg SV(LVOT): 68.1 ml LV V1 mean P.7 mmHg LV V1 max: 134.8 cm/sec LV V1 mean: 89.2 cm/sec LV V1 VTI: 22.9 cm PA V2 max: 99.8 cm/sec Med Peak E' Aime: 5.0 cm/sec PA max P.0 mmHg Med E/e': 8.8 Lat Peak E' Aime: 7.7 cm/sec Lat E/e': 5.7 Left Ventricle The left ventricle is normal in size. There is mild concentric left ventricular hypertrophy. The left ventricular ejection fraction is normal. Ejection Fraction = 60%. The transmitral spectral Doppler fl ow pattern is suggestive of impaired LV relaxation. Mitral Valve There is trivial mitral valve thickening. There is mild mitral regurgitation. Tricuspid Valve There is mild tricuspid regurgitation. Right ventricular systolic pressure is normal. Pulmonic Valve Trace pulmonic valvular regurgitation. Great Vessels The aortic root is normal size. Pericardium/Pleura There is no pericardial effusion. Interpretation Summary The left ventricle is normal in size. There is mild concentric left ventricular hypertrophy. The left ventricular ejection fraction is normal. The transmitral spectral Doppler flow pattern is suggestive of impaired LV relaxation. Ejection Fraction = 60%. There is mild mitral regurgitation. There is mild tricuspid regurgitation. Right ventricular systolic pressure is normal. There is trivial mitral valve thickening. Trace pulmonic valvular regurgitation. The aortic root is normal size. There is no pericardial effusion. Dilip Earl MD 04/12/2019 12:20 PM
[2019-04-12] MEDS ORDERED: MAG HYDROX/AL HYDROX/SIMETH 30 ML UNIT-DOSE CUP PO ONE (15:15)
--- NOTE | 2019-04-12 16:32 | PN ---
Progress Note, Physician - Current Medication List Current Medications: Active Medications Acetaminophen (Tylenol -) 650 mg PO Q4H PRN PRN Reason: PAIN LEVEL 4 - 6 Last Admin: 04/12/19 04:00 Dose: 650 mg Albuterol Sulfate (Ventolin 0.083% Nebulizer Soln -) 1 amp NEB Q4H PRN PRN Reason: SHORT OF BREATH/WHEEZING Last Admin: 04/12/19 02:55 Dose: 1 amp Albuterol/Ipratropium (Duoneb -) 1 amp NEB RTID [facility] Last Admin: 04/12/19 14:26 Dose: 1 amp Hydrochlorothiazide (Hctz -) 25 mg PO DAILY [facility] Last Admin: 04/12/19 10:34 Dose: 25 mg Isosorbide Mononitrate (Imdur -) 30 mg PO DAILY [facility] Last Admin: 04/12/19 10:34 Dose: 30 mg Losartan Potassium (Cozaar -) 100 mg PO DAILY [facility] Last Admin: 04/12/19 10:34 Dose: 100 mg Methylprednisolone Sodium Succinate (Solu-Medrol -) 40 mg IVPUSH BID [facility] Last Admin: 04/12/19 10:34 Dose: 40 mg Montelukast Sodium (Singulair -) 10 mg PO HS [facility] Last Admin: 04/11/19 22:04 Dose: 10 mg Nifedipine (Procardia Xl -) 60 mg PO DAILY [facility] Pantoprazole Sodium (Protonix -) 40 mg PO DAILY [facility] - Objective Vital Signs: Vital Signs Temperature 98.4 F 04/12/19 15:00 Pulse Rate 92 H 04/12/19 15:00 Respiratory Rate 20 04/12/19 15:00 Blood Pressure 146/84 04/12/19 15:00 O2 Sat by Pulse Oximetry (%) 96 04/11/19 21:00 Constitutional: Yes: No Distress HENT: Yes: Atraumatic Neck: Yes: Supple Cardiovascular: Yes: Regular Rate and Rhythm Respiratory: Yes: CTA Bilaterally Gastrointestinal: Yes: Normal Bowel Sounds Extremities: Yes: WNL Edema: No Peripheral Pulses WNL: Yes Neurological: Yes: Alert, Oriented Labs: CBC, BMP 04/09/19 12:10 04/09/19 12:10 INR, PTT INR 1.06 (0.83-1.09) 04/10/19 02:15 Problem List - Problems (1) Asthma exacerbation Assessment/Plan: iv steroids...taper prn nebs pulmonary consult Code(s): J45.901 - UNSPECIFIED ASTHMA WITH (ACUTE) EXACERBATION Qualifiers: Asthma severity: moderate (2) HTN (hypertension) Assessment/Plan: on meds monitor will get cardio consult Code(s): I10 - ESSENTIAL (PRIMARY) HYPERTENSION Qualifiers: Hypertension type: essential hypertension Qualified Code(s): I10 - Essential (primary) hypertension (3) SUSAN (obstructive sleep apnea) Code(s): G47.33 - OBSTRUCTIVE SLEEP APNEA (ADULT) (PEDIATRIC) (4) GERD (gastroesophageal reflux disease) Assessment/Plan: will start protonix will get cardiac profile to r/o any cardiac event Code(s): K21.9 - GASTRO-ESOPHAGEAL REFLUX DISEASE WITHOUT ESOPHAGITIS Assessment/Plan Laboratory Tests 04/09/19 04/09/19 12:10 12:10 WBC 8.1 RBC 5.33 H Hgb 13.8 Hct 42.2 MCV 79.2 L MCH 25.8 MCHC 32.6 RDW 14.7 Plt Count 242 MPV 8.5 Absolute Neuts (auto) 4.6 Neutrophils % 57.1 Lymphocytes % 32.7 Monocytes % 6.1 Eosinophils % 3.5 Basophils % 0.6 Nucleated RBC % 0 Sodium 139 Potassium 4.0 Chloride 107 Carbon Dioxide 31 Anion Gap 0 L BUN 8.7 Creatinine 0.8 Est GFR (CKD-EPI)AfAm 93.53 Est GFR (CKD-EPI)NonAf 80.70 Random Glucose 84 Calcium 8.6 Total Bilirubin 0.5 AST 17 ALT 22 Alkaline Phosphatase 82 Creatine Kinase 190 Creatine Kinase Index 1.0 CK-MB (CK-2) 2.0 Troponin I < 0.02 Total Protein 7.1 Albumin 3.4 Active Medications Generic Name Dose Route Start Last Admin Trade Name Freq PRN Reason Stop Dose Admin Albuterol Sulfate 1 amp 04/10/19 10:14 04/10/19 11:40 Ventolin 0.083% Nebulizer Soln - NEB 1 amp Q4H PRN Administration SHORT OF BREATH/WHEEZING Albuterol/Ipratropium 1 amp 04/10/19 14:00 04/10/19 14:30 Duoneb - NEB 1 amp RTID [facility] Administration Hydrochlorothiazide 25 mg 04/10/19 10:00 04/10/19 10:30 Hctz - PO 25 mg DAILY [facility] Administration Ibuprofen 600 mg 04/09/19 21:57 04/09/19 22:30 Motrin - PO 600 mg Q6H PRN Administration FEVER AND PAIN SCALE 6-10 Isosorbide Mononitrate 30 mg 04/10/19 10:00 04/10/19 10:30 Imdur - PO 30 mg DAILY [facility] Administration Losartan Potassium 100 mg 04/10/19 11:45 04/10/19 12:05 Cozaar - PO 100 mg DAILY [facility] Administration Methylprednisolone Sodium Succinate 60 mg 04/10/19 02:00 04/10/19 18:31 Solu-Medrol - IVPUSH 60 mg Q8H-IV [facility]Y Administration Montelukast Sodium 10 mg 04/09/19 22:00 04/09/19 21:09 Singulair - PO 10 mg HS [facility] Administration Nifedipine 30 mg 04/10/19 10:00 04/10/19 12:05 Procardia Xl - PO Not Given DAILY [facility]
[2019-04-12 21:06] LABS: BASO % 0.1 % (0-2.0); HEMATOCRIT 48.7 % (32.4-45.2); HEMOGLOBIN 15.6 GM/dL (10.7-15.3); LYMPH % 17.1 % (8-40); MCH 25.6 pg (25.7-33.7); MCHC 32.1 g/dl (32.0-36.0); MEAN CELL VOLUME 79.7 fl (80-96); MEAN PLT VOLUME 9.1 fl (7.5-11.1); MONO % 7.8 % (3.8-10.2); PLATELET COUNT 282 K/MM3 (134-434); RBC 6.11 M/mm3 (3.60-5.2); RDW 14.8 % (11.6-15.6); WHITE BLOOD COUNT 15.9 K/mm3 (4.0-10.0)
[2019-04-12 21:37] LABS: ALBUMIN 3.6 g/dl (3.4-5.0); ALK PHOS 85 U/L (45-117); ANION GAP 8 MMOL/L (8-16); BILIRUBIN,TOTAL 0.4 mg/dL (0.2-1); BLOOD UREA NITROGEN 32.6 mg/dL (7-18); CALCIUM 9.9 mg/dL (8.5-10.1); CHLORIDE 102 mmol/L (98-107); CO2 28 mmol/L (21-32); GLUCOSE,RANDOM 127 mg/dL (74-106); POTASSIUM 3.8 mmol/L (3.5-5.1); SGOT/AST 16 U/L (15-37); SGPT/ALT 30 U/L (13-61); SODIUM 138 mmol/L (136-145); TOT PROT 7.5 g/dl (6.4-8.2)
[2019-04-12] MEDS: MONTELUKAST NA 10 MG TABLET PO SCH (22:37)
[2019-04-13] MEDS: ALBUTEROL SO4 2.5/IPRATROPIUM 0.5 INH SOL 3 ML VIAL.NEB. NEB SCH ×3 (07:45→20:24)
[2019-04-13] MEDS ORDERED: PANTOPRAZOLE 40 MG TABLET (FP) PO SCH (10:00)
--- NOTE | 2019-04-13 10:14 | DS ---
Physical Examination Vital Signs: Vital Signs Temperature 98.6 F 04/13/19 06:35 Pulse Rate 88 04/13/19 06:35 Respiratory Rate 20 04/13/19 06:35 Blood Pressure 157/76 04/13/19 06:35 O2 Sat by Pulse Oximetry (%) 94 L 04/12/19 10:45 Constitutional: Yes: No Distress HENT: Yes: Atraumatic Neck: Yes: Supple Cardiovascular: Yes: Regular Rate and Rhythm Respiratory: Yes: CTA Bilaterally Gastrointestinal: Yes: Normal Bowel Sounds Extremities: Yes: WNL Edema: No Peripheral Pulses WNL: Yes Neurological: Yes: Alert, Oriented Labs: CBC, BMP 04/12/19 20:15 04/12/19 20:15 Discharge Summary Problems reviewed: Yes Reason For Visit: EXACERBATION OF ASTHMA Current Active Problems Asthma exacerbation (Acute) Chest pain (Acute) GERD (gastroesophageal reflux disease) (Acute) HTN (hypertension) (Acute) SUSAN (obstructive sleep apnea) (Acute) Old myocardial infarction (Acute) - Instructions - Home Medications Comprehensive Discharge Medication List: Ambulatory Orders Albuterol Sulfate [Proair Hfa -] 1 - 2 inh PO TID PRN 04/10/15 Isosorbide Mononitrate [Imdur -] 30 mg PO DAILY 04/10/15 Losartan/Hydrochlorothiazide [Losartan-Hctz 100-25 mg Tab] 1 each PO DAILY 04/10 Montelukast Na [Singulair -] 10 mg PO HS 04/10/15 Nifedipine [Nifedical Xl] 30 mg PO DAILY 04/10/15 Nitroglycerin [Nitrostat] 0.4 mg SL PRN 04/10/15 predniSONE [Deltasone -] 40 mg PO TID 04/10/15 Pantoprazole Sodium [Protonix] 40 mg PO DAILY #30 tablet. 04/11/19 Prednisone 10 mg PO ASDIR #30 tablet 04/11/19 Prescription Drug Monitoring Program (I-STOP) results: I-STOP reviewed and issues identified
[2019-04-13] MEDS: LOSARTAN POTASSIUM 50 MG TABLET (FP) PO SCH (11:32)
[2019-04-13] MEDS: PANTOPRAZOLE 40 MG TABLET (FP) PO SCH (11:32)
[2019-04-13] MEDS: HYDROCHLOROTHIAZIDE 25 MG TABLET (FP) PO SCH (11:32)
[2019-04-13] MEDS: ISOSORBIDE MONONITRATE 30 MG TAB.SR.24H (FP) PO SCH (11:32)
[2019-04-13] MEDS: NIFEdipine E.R 60 MG TABLET (UD) PO SCH (11:32)
[2019-04-13] MEDS: methylPREDNISolone NA SUCC 40 MG/1 ML VIAL IVPUSH SCH ×2 (11:33→21:35)
--- NOTE | 2019-04-13 15:35 | PN ---
Progress Note, Physician History of Present Illness: Dyspnea, wheezes improving w/o further chest pressure, yet not at baseline. BP with improved control. - Current Medication List Current Medications: Active Medications Acetaminophen (Tylenol -) 650 mg PO Q4H PRN PRN Reason: PAIN LEVEL 4 - 6 Last Admin: 04/12/19 04:00 Dose: 650 mg Albuterol Sulfate (Ventolin 0.083% Nebulizer Soln -) 1 amp NEB Q4H PRN PRN Reason: SHORT OF BREATH/WHEEZING Last Admin: 04/12/19 02:55 Dose: 1 amp Albuterol/Ipratropium (Duoneb -) 1 amp NEB RTID [facility] Last Admin: 04/13/19 07:45 Dose: 1 amp Hydrochlorothiazide (Hctz -) 25 mg PO DAILY [facility] Last Admin: 04/13/19 11:32 Dose: 25 mg Isosorbide Mononitrate (Imdur -) 30 mg PO DAILY [facility] Last Admin: 04/13/19 11:32 Dose: 30 mg Losartan Potassium (Cozaar -) 100 mg PO DAILY [facility] Last Admin: 04/13/19 11:32 Dose: 100 mg Methylprednisolone Sodium Succinate (Solu-Medrol -) 40 mg IVPUSH BID [facility] Last Admin: 04/13/19 11:33 Dose: 40 mg Montelukast Sodium (Singulair -) 10 mg PO HS [facility] Last Admin: 04/12/19 22:37 Dose: 10 mg Nifedipine (Procardia Xl -) 60 mg PO DAILY [facility] Last Admin: 04/13/19 11:32 Dose: 60 mg Pantoprazole Sodium (Protonix -) 40 mg PO DAILY [facility] Last Admin: 04/13/19 11:32 Dose: 40 mg - Objective Vital Signs: Vital Signs Temperature 98.2 F 04/13/19 15:14 Pulse Rate 98 H 04/13/19 15:14 Respiratory Rate 20 04/13/19 15:14 Blood Pressure 133/76 04/13/19 15:14 O2 Sat by Pulse Oximetry (%) 94 L 04/12/19 10:45 Constitutional: Yes: No Distress, Calm Neck: Yes: Supple Cardiovascular: Yes: Regular Rate and Rhythm Respiratory: Yes: Regular, Diminished, On Nasal O2, SOB, SOB on Exertion Gastrointestinal: Yes: Normal Bowel Sounds, Soft Edema: No Labs: CBC, BMP 04/12/19 20:15 04/12/19 20:15 INR, PTT INR 1.06 (0.83-1.09) 04/10/19 02:15 Problem List - Problems (1) Old myocardial infarction Code(s): I25.2 - OLD MYOCARDIAL INFARCTION (2) Asthma exacerbation Code(s): J45.901 - UNSPECIFIED ASTHMA WITH (ACUTE) EXACERBATION Qualifiers: Asthma severity: moderate (3) HTN (hypertension) Code(s): I10 - ESSENTIAL (PRIMARY) HYPERTENSION Qualifiers: Hypertension type: essential hypertension Qualified Code(s): I10 - Essential (primary) hypertension (4) SUSAN (obstructive sleep apnea) Code(s): G47.33 - OBSTRUCTIVE SLEEP APNEA (ADULT) (PEDIATRIC) (5) Chest pain Code(s): R07.9 - CHEST PAIN, UNSPECIFIED Qualifiers: Ischemic chest pain type: stable angina pectoris Assessment/Plan 04/12/2019 Echo: Normal LV size with mild cLVH and normal LV fxn, abnl LV compliance LVEF 60% mild MR, TR, tr [place] 1. Chest pain syndrome h/o nonobstructive CAD 2. AE of moderate persistent asthma with suspected viral syndrome 3. Mild OSAS with moderate oxygen desaturation, currently not on treatment 4. HTN urgency 5. Vertigo/Meniere's disease 6. History of an uncoiled aorta 7. Obesity PLAN: 1. Ruled out for [place], check echocardiogram to assess ventricular and valve fxn 2. IV steroid taper with GI protection, BD, O2 as needed, Singulair, will need formal re-evaluation of OSAS after DC 3. Once asthma flare abates, would perform dobutamine echo to r/o CAD/ischemia, may be performed as outpatient 4. Continue Imdur 30 qd, Hyzaar 100/25 qd, increased Procardia XL 60 qd, NTG as needed, d/adelita Motrin
[2019-04-13] MEDS: MONTELUKAST NA 10 MG TABLET PO SCH (21:35)
[2019-04-14] MEDS: ALBUTEROL SO4 2.5/IPRATROPIUM 0.5 INH SOL 3 ML VIAL.NEB. NEB SCH ×3 (08:30→20:21)
--- NOTE | 2019-04-14 08:53 | PN ---
Progress Note, Physician - Current Medication List Current Medications: Active Medications Acetaminophen (Tylenol -) 650 mg PO Q4H PRN PRN Reason: PAIN LEVEL 4 - 6 Last Admin: 04/12/19 04:00 Dose: 650 mg Albuterol Sulfate (Ventolin 0.083% Nebulizer Soln -) 1 amp NEB Q4H PRN PRN Reason: SHORT OF BREATH/WHEEZING Last Admin: 04/12/19 02:55 Dose: 1 amp Albuterol/Ipratropium (Duoneb -) 1 amp NEB RTID [facility] Last Admin: 04/14/19 08:30 Dose: 1 amp Hydrochlorothiazide (Hctz -) 25 mg PO DAILY [facility] Last Admin: 04/13/19 11:32 Dose: 25 mg Isosorbide Mononitrate (Imdur -) 30 mg PO DAILY [facility] Last Admin: 04/13/19 11:32 Dose: 30 mg Losartan Potassium (Cozaar -) 100 mg PO DAILY [facility] Last Admin: 04/13/19 11:32 Dose: 100 mg Methylprednisolone Sodium Succinate (Solu-Medrol -) 40 mg IVPUSH BID [facility] Last Admin: 04/13/19 21:35 Dose: 40 mg Montelukast Sodium (Singulair -) 10 mg PO HS [facility] Last Admin: 04/13/19 21:35 Dose: 10 mg Nifedipine (Procardia Xl -) 60 mg PO DAILY [facility] Last Admin: 04/13/19 11:32 Dose: 60 mg Pantoprazole Sodium (Protonix -) 40 mg PO DAILY [facility] Last Admin: 04/13/19 11:32 Dose: 40 mg - Objective Vital Signs: Vital Signs Temperature 98.6 F 04/14/19 06:00 Pulse Rate 79 04/14/19 06:00 Respiratory Rate 18 04/14/19 06:00 Blood Pressure 137/70 04/14/19 06:00 O2 Sat by Pulse Oximetry (%) 96 04/13/19 21:00 Eyes: Yes: WNL, Conjunctiva Clear, EOM Intact HENT: Yes: WNL, Atraumatic, Normocephalic Neck: Yes: WNL, Supple, Trachea Midline Cardiovascular: Yes: WNL, Regular Rate and Rhythm Respiratory: Yes: Wheezes Gastrointestinal: Yes: WNL, Normal Bowel Sounds Genitourinary: Yes: WNL Musculoskeletal: Yes: WNL Extremities: Yes: WNL Edema: No Integumentary: Yes: WNL Neurological: Yes: WNL, Alert, Oriented ...Motor Strength: WNL Psychiatric: Yes: WNL Labs: CBC, BMP 04/12/19 20:15 04/12/19 20:15 INR, PTT INR 1.06 (0.83-1.09) 04/10/19 02:15 Assessment/Plan Assessment/Plan 04/12/2019 Echo: Normal LV size with mild cLVH and normal LV fxn, abnl LV compliance LVEF 60% mild MR, TR, tr [place] 1. Chest pain syndrome h/o nonobstructive CAD 2. AE of moderate persistent asthma with suspected viral syndrome 3. Mild OSAS with moderate oxygen desaturation, currently not on treatment 4. HTN urgency 5. Vertigo/Meniere's disease 6. History of an uncoiled aorta 7. Obesity PLAN: 1. Ruled out for [place], check echocardiogram to assess ventricular and valve fxn 2. IV steroid taper with GI protection, BD, O2 as needed, Singulair, will need formal re-evaluation of OSAS after DC 3. Once asthma flare abates, would perform dobutamine echo to r/o CAD/ischemia, may be performed as outpatient 4. Continue Imdur 30 qd, Hyzaar 100/25 qd, increased Procardia XL 60 qd, NTG as needed, d/adelita Motrin coverage for dr. Sandoval
[2019-04-14] MEDS: LOSARTAN POTASSIUM 50 MG TABLET (FP) PO SCH (09:31)
[2019-04-14] MEDS: methylPREDNISolone NA SUCC 40 MG/1 ML VIAL IVPUSH SCH ×2 (09:31→21:46)
[2019-04-14] MEDS: PANTOPRAZOLE 40 MG TABLET (FP) PO SCH (09:32)
[2019-04-14] MEDS: HYDROCHLOROTHIAZIDE 25 MG TABLET (FP) PO SCH (09:32)
[2019-04-14] MEDS: NIFEdipine E.R 60 MG TABLET (UD) PO SCH (09:32)
[2019-04-14] MEDS: ISOSORBIDE MONONITRATE 30 MG TAB.SR.24H (FP) PO SCH (09:32)
--- NOTE | 2019-04-14 12:24 | PN ---
Progress Note (short form) - Note Progress Note: PULMONARY HAD A BAD NIGHT W WHEEZING/COUGH VSS/AFEBRILE SPO2 97% R/A ANICTERIC MILD B/L ANTERIOR WHEEZE S1S2 BS+ NO EDEMA LABS/MEDS/NOTES/IMAGES REVIEWED AE of Moderate Persistent Asthma Suspected Viral Syndrome Do not suspect PNA Mild OSAS with Moderate oxygen desaturation, currently not on treatment Vertigo/ Meniere's disease HTN History of an uncoiled aorta Obesity PLAN: Medrol at current dose BD TX standing and PRN Daily AM PEF measurement O2 as needed Monitor off ABX VTE prophylaxis Singulair Need to reassess IgE level after DC Will need formal re-evaluation of OSAS after DC No smoking counseled Hope to d/c home in AM R NISHI BECKMAN
--- NOTE | 2019-04-14 12:25 | PN ---
Progress Note (short form) - Note Progress Note: PULMONARY HAD A BAD NIGHT W WHEEZING/COUGH VSS/AFEBRILE SPO2 97% R/A ANICTERIC MILD B/L ANTERIOR WHEEZE S1S2 BS+ NO EDEMA LABS/MEDS/NOTES/IMAGES REVIEWED AE of Moderate Persistent Asthma Suspected Viral Syndrome Mild OSAS with Moderate oxygen desaturation, currently not on treatment Vertigo/ Meniere's disease HTN History of an uncoiled aorta Obesity PLAN: Medrol at current dose BD TX standing and PRN Daily AM PEF measurement O2 as needed Monitor off ABX VTE prophylaxis Singulair Need to reassess IgE level after DC Will need formal re-evaluation of OSAS after DC No smoking counseled Hope to discharge tomorrow Arline ALMODOVAR MD
--- NOTE | 2019-04-14 18:46 | PN ---
Progress Note, Physician - Current Medication List Current Medications: Active Medications Acetaminophen (Tylenol -) 650 mg PO Q4H PRN PRN Reason: PAIN LEVEL 4 - 6 Last Admin: 04/12/19 04:00 Dose: 650 mg Albuterol Sulfate (Ventolin 0.083% Nebulizer Soln -) 1 amp NEB Q4H PRN PRN Reason: SHORT OF BREATH/WHEEZING Last Admin: 04/12/19 02:55 Dose: 1 amp Albuterol/Ipratropium (Duoneb -) 1 amp NEB RTID [facility] Last Admin: 04/14/19 14:04 Dose: 1 amp Hydrochlorothiazide (Hctz -) 25 mg PO DAILY [facility] Last Admin: 04/14/19 09:32 Dose: 25 mg Isosorbide Mononitrate (Imdur -) 30 mg PO DAILY [facility] Last Admin: 04/14/19 09:32 Dose: 30 mg Losartan Potassium (Cozaar -) 100 mg PO DAILY [facility] Last Admin: 04/14/19 09:31 Dose: 100 mg Methylprednisolone Sodium Succinate (Solu-Medrol -) 40 mg IVPUSH BID [facility] Last Admin: 04/14/19 09:31 Dose: 40 mg Montelukast Sodium (Singulair -) 10 mg PO HS [facility] Last Admin: 04/13/19 21:35 Dose: 10 mg Nifedipine (Procardia Xl -) 60 mg PO DAILY [facility] Last Admin: 04/14/19 09:32 Dose: 60 mg Pantoprazole Sodium (Protonix -) 40 mg PO DAILY [facility] Last Admin: 04/14/19 09:32 Dose: 40 mg - Objective Vital Signs: Vital Signs Temperature 98.5 F 04/14/19 18:00 Pulse Rate 93 H 04/14/19 18:00 Respiratory Rate 20 04/14/19 18:00 Blood Pressure 145/62 04/14/19 18:00 O2 Sat by Pulse Oximetry (%) 96 04/13/19 21:00 Constitutional: Yes: No Distress HENT: Yes: Atraumatic Neck: Yes: Supple Cardiovascular: Yes: Regular Rate and Rhythm Respiratory: Yes: Wheezes Gastrointestinal: Yes: Normal Bowel Sounds Extremities: Yes: WNL Neurological: Yes: Alert, Oriented Labs: CBC, BMP 04/12/19 20:15 04/12/19 20:15 INR, PTT INR 1.06 (0.83-1.09) 04/10/19 02:15 Problem List - Problems (1) Asthma exacerbation Assessment/Plan: iv steroids prn nebs pulmonary consult Code(s): J45.901 - UNSPECIFIED ASTHMA WITH (ACUTE) EXACERBATION Qualifiers: Asthma severity: moderate (2) HTN (hypertension) Assessment/Plan: on meds monitor Code(s): I10 - ESSENTIAL (PRIMARY) HYPERTENSION Qualifiers: Hypertension type: essential hypertension Qualified Code(s): I10 - Essential (primary) hypertension
[2019-04-14] MEDS: MONTELUKAST NA 10 MG TABLET PO SCH (21:46)
[2019-04-15] MEDS: ALBUTEROL SO4 0.083% IH SOL 2.5 MG/3 ML VIAL.NEB. NEB PRN (04:45)
[2019-04-15] MEDS: ALBUTEROL SO4 2.5/IPRATROPIUM 0.5 INH SOL 3 ML VIAL.NEB. NEB SCH (08:27)
--- NOTE | 2019-04-15 08:49 | PN ---
Progress Note, Physician - Current Medication List Current Medications: Active Medications Acetaminophen (Tylenol -) 650 mg PO Q4H PRN PRN Reason: PAIN LEVEL 4 - 6 Last Admin: 04/12/19 04:00 Dose: 650 mg Albuterol Sulfate (Ventolin 0.083% Nebulizer Soln -) 1 amp NEB Q4H PRN PRN Reason: SHORT OF BREATH/WHEEZING Last Admin: 04/15/19 04:45 Dose: 1 amp Albuterol/Ipratropium (Duoneb -) 1 amp NEB RTID [facility] Last Admin: 04/15/19 08:27 Dose: 1 amp Hydrochlorothiazide (Hctz -) 25 mg PO DAILY [facility] Last Admin: 04/14/19 09:32 Dose: 25 mg Isosorbide Mononitrate (Imdur -) 30 mg PO DAILY [facility] Last Admin: 04/14/19 09:32 Dose: 30 mg Losartan Potassium (Cozaar -) 100 mg PO DAILY [facility] Last Admin: 04/14/19 09:31 Dose: 100 mg Methylprednisolone Sodium Succinate (Solu-Medrol -) 40 mg IVPUSH BID [facility] Last Admin: 04/14/19 21:46 Dose: 40 mg Montelukast Sodium (Singulair -) 10 mg PO HS [facility] Last Admin: 04/14/19 21:46 Dose: 10 mg Nifedipine (Procardia Xl -) 60 mg PO DAILY [facility] Last Admin: 04/14/19 09:32 Dose: 60 mg Pantoprazole Sodium (Protonix -) 40 mg PO DAILY [facility] Last Admin: 04/14/19 09:32 Dose: 40 mg - Objective Vital Signs: Vital Signs Temperature 97.8 F 04/15/19 06:04 Pulse Rate 72 04/15/19 06:04 Respiratory Rate 20 04/15/19 06:04 Blood Pressure 134/60 04/15/19 06:04 O2 Sat by Pulse Oximetry (%) 97 04/14/19 21:00 Eyes: Yes: WNL, Conjunctiva Clear, EOM Intact HENT: Yes: WNL, Atraumatic, Normocephalic Neck: Yes: WNL, Supple, Trachea Midline Cardiovascular: Yes: WNL, Regular Rate and Rhythm Respiratory: Yes: WNL, Regular, CTA Bilaterally Gastrointestinal: Yes: WNL, Normal Bowel Sounds Genitourinary: Yes: WNL Musculoskeletal: Yes: WNL Extremities: Yes: WNL Edema: No Integumentary: Yes: WNL Neurological: Yes: WNL, Alert, Oriented ...Motor Strength: WNL Psychiatric: Yes: WNL Labs: CBC, BMP 04/12/19 20:15 04/12/19 20:15 INR, PTT INR 1.06 (0.83-1.09) 04/10/19 02:15 Assessment/Plan Assessment/Plan 04/12/2019 Echo: Normal LV size with mild cLVH and normal LV fxn, abnl LV compliance LVEF 60% mild MR, TR, tr [place] 1. Chest pain syndrome h/o nonobstructive CAD 2. AE of moderate persistent asthma with suspected viral syndrome 3. Mild OSAS with moderate oxygen desaturation, currently not on treatment 4. HTN urgency 5. Vertigo/Meniere's disease 6. History of an uncoiled aorta 7. Obesity asthma exacorbation improved, no wheezes today. PLAN: 1. Ruled out for [place], check echocardiogram to assess ventricular and valve fxn 2. IV steroid taper with GI protection, BD, O2 as needed, Singulair, will need formal re-evaluation of OSAS after DC 3. Once asthma flare abates, would perform dobutamine echo to r/o CAD/ischemia, may be performed as outpatient 4. Continue Imdur 30 qd, Hyzaar 100/25 qd, increased Procardia XL 60 qd, NTG as needed, d/adelita Motrin coverage for dr. Sandoval
[2019-04-15] MEDS: LOSARTAN POTASSIUM 50 MG TABLET (FP) PO SCH (10:37)
[2019-04-15] MEDS: NIFEdipine E.R 60 MG TABLET (UD) PO SCH (10:37)
[2019-04-15] MEDS: ISOSORBIDE MONONITRATE 30 MG TAB.SR.24H (FP) PO SCH (10:37)
[2019-04-15] MEDS: methylPREDNISolone NA SUCC 40 MG/1 ML VIAL IVPUSH SCH ×2 (10:37→22:15)
[2019-04-15] MEDS: HYDROCHLOROTHIAZIDE 25 MG TABLET (FP) PO SCH (10:37)
[2019-04-15] MEDS: PANTOPRAZOLE 40 MG TABLET (FP) PO SCH (10:37)
--- NOTE | 2019-04-15 13:36 | PN ---
Progress Note (short form) - Note Progress Note: PULMONARY OOB TO CHAIR APPEARS STABLE VSS/AFEBRILE SPO2 97% R/A ANICTERIC MILD B/L ANTERIOR WHEEZE S1S2 BS+ NO EDEMA LABS/MEDS/NOTES/IMAGES REVIEWED AE of Moderate Persistent Asthma Suspected Viral Syndrome Do not suspect PNA Mild OSAS with Moderate oxygen desaturation, currently not on treatment Vertigo/ Meniere's disease HTN History of an uncoiled aorta Obesity PLAN: Change to prednisone and taper as an outpatient BD TX standing and PRN O2 as needed Monitor off ABX VTE prophylaxis Singulair Need to reassess IgE level after DC Will need formal re-evaluation of OSAS after DC No smoking counseled No objection to discharge Arline ALMODOVAR MD
--- NOTE | 2019-04-15 22:10 | PN ---
Progress Note, Physician History of Present Illness: Pt reported some SOB wc awoke pt from sleep - Current Medication List Current Medications: Active Medications Acetaminophen (Tylenol -) 650 mg PO Q4H PRN PRN Reason: PAIN LEVEL 4 - 6 Last Admin: 04/12/19 04:00 Dose: 650 mg Hydrochlorothiazide (Hctz -) 25 mg PO DAILY [facility] Last Admin: 04/15/19 10:37 Dose: 25 mg Isosorbide Mononitrate (Imdur -) 30 mg PO DAILY [facility] Last Admin: 04/15/19 10:37 Dose: 30 mg Losartan Potassium (Cozaar -) 100 mg PO DAILY [facility] Last Admin: 04/15/19 10:37 Dose: 100 mg Methylprednisolone Sodium Succinate (Solu-Medrol -) 40 mg IVPUSH BID [facility] Last Admin: 04/15/19 10:37 Dose: 40 mg Montelukast Sodium (Singulair -) 10 mg PO HS [facility] Last Admin: 04/14/19 21:46 Dose: 10 mg Nifedipine (Procardia Xl -) 60 mg PO DAILY [facility] Last Admin: 04/15/19 10:37 Dose: 60 mg Pantoprazole Sodium (Protonix -) 40 mg PO DAILY [facility] Last Admin: 04/15/19 10:37 Dose: 40 mg - Objective Vital Signs: Vital Signs Temperature 98.4 F 04/15/19 18:00 Pulse Rate 79 04/15/19 18:00 Respiratory Rate 20 04/15/19 18:00 Blood Pressure 144/72 04/15/19 18:00 O2 Sat by Pulse Oximetry (%) 98 04/15/19 10:40 Neck: Yes: WNL, Supple Cardiovascular: Yes: WNL, Regular Rate and Rhythm Respiratory: Yes: Diminished Gastrointestinal: Yes: WNL, Normal Bowel Sounds, Soft, Abdomen, Obese Labs: CBC, BMP 04/12/19 20:15 04/12/19 20:15 INR, PTT INR 1.06 (0.83-1.09) 04/10/19 02:15 Problem List - Problems (1) Asthma exacerbation Assessment/Plan: Cont IV steroids and probable change to po prednisone in am Pt is off antibxs Code(s): J45.901 - UNSPECIFIED ASTHMA WITH (ACUTE) EXACERBATION Qualifiers: Asthma severity: moderate (2) GERD (gastroesophageal reflux disease) Assessment/Plan: Cont protonix Code(s): K21.9 - GASTRO-ESOPHAGEAL REFLUX DISEASE WITHOUT ESOPHAGITIS (3) HTN (hypertension) Assessment/Plan: BP stable Cont losartan/hctz/nifidipine/imdur Code(s): I10 - ESSENTIAL (PRIMARY) HYPERTENSION Qualifiers: Hypertension type: essential hypertension Qualified Code(s): I10 - Essential (primary) hypertension (4) SUSAN (obstructive sleep apnea) Code(s): G47.33 - OBSTRUCTIVE SLEEP APNEA (ADULT) (PEDIATRIC)
[2019-04-15] MEDS: MONTELUKAST NA 10 MG TABLET PO SCH (22:15)
[2019-04-16] MEDS: ISOSORBIDE MONONITRATE 30 MG TAB.SR.24H (FP) PO SCH (10:07)
[2019-04-16] MEDS: LOSARTAN POTASSIUM 50 MG TABLET (FP) PO SCH (10:07)
[2019-04-16] MEDS: NIFEdipine E.R 60 MG TABLET (UD) PO SCH (10:07)
[2019-04-16] MEDS: HYDROCHLOROTHIAZIDE 25 MG TABLET (FP) PO SCH (10:08)
[2019-04-16] MEDS: PANTOPRAZOLE 40 MG TABLET (FP) PO SCH (10:08)
[2019-04-16] MEDS: methylPREDNISolone NA SUCC 40 MG/1 ML VIAL IVPUSH SCH (11:18)
[2019-04-16] MEDS ORDERED: predniSONE 20 MG TABLET (UD) PO SCH (11:30)
--- NOTE | 2019-04-16 11:40 | PN ---
Progress Note, Physician History of Present Illness: Dyspnea, chest tightness and wheeze overnight improving after rescue MDI. BP with improved control. - Current Medication List Current Medications: Active Medications Acetaminophen (Tylenol -) 650 mg PO Q4H PRN PRN Reason: PAIN LEVEL 4 - 6 Last Admin: 04/12/19 04:00 Dose: 650 mg Hydrochlorothiazide (Hctz -) 25 mg PO DAILY [facility] Last Admin: 04/16/19 10:08 Dose: 25 mg Isosorbide Mononitrate (Imdur -) 30 mg PO DAILY [facility] Last Admin: 04/16/19 10:07 Dose: 30 mg Losartan Potassium (Cozaar -) 100 mg PO DAILY [facility] Last Admin: 04/16/19 10:07 Dose: 100 mg Montelukast Sodium (Singulair -) 10 mg PO HS [facility] Last Admin: 04/15/19 22:15 Dose: 10 mg Nifedipine (Procardia Xl -) 60 mg PO DAILY [facility] Last Admin: 04/16/19 10:07 Dose: 60 mg Pantoprazole Sodium (Protonix -) 40 mg PO DAILY [facility] Last Admin: 04/16/19 10:08 Dose: 40 mg Prednisone (Deltasone -) 40 mg PO DAILY [facility] - Objective Vital Signs: Vital Signs Temperature 98.5 F 04/16/19 10:00 Pulse Rate 84 04/16/19 10:00 Respiratory Rate 20 04/16/19 10:00 Blood Pressure 146/81 04/16/19 10:00 O2 Sat by Pulse Oximetry (%) 97 04/15/19 21:00 Constitutional: Yes: No Distress, Calm Neck: Yes: Supple Cardiovascular: Yes: Regular Rate and Rhythm Respiratory: Yes: Regular, Diminished Gastrointestinal: Yes: Normal Bowel Sounds, Soft Edema: No Labs: CBC, BMP 04/12/19 20:15 04/12/19 20:15 INR, PTT INR 1.06 (0.83-1.09) 04/10/19 02:15 Problem List - Problems (1) Old myocardial infarction Code(s): I25.2 - OLD MYOCARDIAL INFARCTION (2) Asthma exacerbation Code(s): J45.901 - UNSPECIFIED ASTHMA WITH (ACUTE) EXACERBATION Qualifiers: Asthma severity: moderate (3) HTN (hypertension) Code(s): I10 - ESSENTIAL (PRIMARY) HYPERTENSION Qualifiers: Hypertension type: essential hypertension Qualified Code(s): I10 - Essential (primary) hypertension (4) SUSAN (obstructive sleep apnea) Code(s): G47.33 - OBSTRUCTIVE SLEEP APNEA (ADULT) (PEDIATRIC) (5) Chest pain Code(s): R07.9 - CHEST PAIN, UNSPECIFIED Qualifiers: Ischemic chest pain type: stable angina pectoris Assessment/Plan 04/12/2019 Echo: Normal LV size with mild cLVH and normal LV fxn, abnl LV compliance LVEF 60% mild MR, TR, tr ME 1. Chest pain syndrome h/o nonobstructive CAD 2. AE of moderate persistent asthma with suspected viral syndrome 3. Mild OSAS with moderate oxygen desaturation, currently not on treatment 4. HTN urgency 5. Vertigo/Meniere's disease 6. History of an uncoiled aorta 7. Obesity PLAN: 1. Oral steroid taper with GI protection, BD, O2 as needed, Singulair, will need formal re-evaluation of OSAS after DC 2. Once asthma flare abates, would perform dobutamine echo to r/o CAD/ischemia, may be performed as outpatient 3. Continue Imdur 30 qd, Hyzaar 100/25 qd, increased Procardia XL 60 qd, NTG as needed, d/adelita Motrin
[2019-04-16] MEDS ORDERED: ALBUTEROL SO4 8 GM HFA INHALER IH PRN (11:55)
--- NOTE | 2019-04-16 13:13 | PN ---
Progress Note (short form) - Note Progress Note: PULMONARY Breathing better but not at baseline. Still some cough and wheezing. Vital Signs Period Temp Pulse Resp BP Sys/Delacruz Pulse Ox Last 24 Hr 97.7 F-98.5 F 70-84 20-20 134-146/68-81 97 Gen: NAD at rest Heart: RRR Lung: scattered wheeze Abd: soft, nontender Ext: no edema CBC, BMP 04/12/19 20:15 04/12/19 20:15 Active Medications Acetaminophen (Tylenol -) 650 mg PO Q4H PRN PRN Reason: PAIN LEVEL 4 - 6 Last Admin: 04/12/19 04:00 Dose: 650 mg Albuterol Sulfate (Ventolin Hfa Inhaler -) 2 puff IH Q4H PRN PRN Reason: SHORT OF BREATH/WHEEZING Hydrochlorothiazide (Hctz -) 25 mg PO DAILY [facility] Last Admin: 04/16/19 10:08 Dose: 25 mg Isosorbide Mononitrate (Imdur -) 30 mg PO DAILY [facility] Last Admin: 04/16/19 10:07 Dose: 30 mg Losartan Potassium (Cozaar -) 100 mg PO DAILY [facility] Last Admin: 04/16/19 10:07 Dose: 100 mg Montelukast Sodium (Singulair -) 10 mg PO HS [facility] Last Admin: 04/15/19 22:15 Dose: 10 mg Nifedipine (Procardia Xl -) 60 mg PO DAILY [facility] Last Admin: 04/16/19 10:07 Dose: 60 mg Pantoprazole Sodium (Protonix -) 40 mg PO DAILY [facility] Last Admin: 04/16/19 10:08 Dose: 40 mg Prednisone (Deltasone -) 40 mg PO DAILY [facility] Last Admin: 04/16/19 12:07 Dose: 40 mg A/P Acute Asthma Exacerbation Obstructive Sleep Apnea Atypical Chest Pain CAD HTN - prednisone taper - inhaled bronchodilators - O2 as needed - monitor peak flow - instructed pt to follow up upon discharge - DVT prophylaxis - d/c planning
[2019-04-16 15:36] VITALS: BP 126/58; PULSE 79; TEMP 98
--- NOTE | 2019-04-16 18:03 | DS ---
Physical Examination Vital Signs: Vital Signs Temperature 98.0 F 04/16/19 14:00 Pulse Rate 79 04/16/19 14:00 Respiratory Rate 20 04/16/19 14:00 Blood Pressure 126/58 L 04/16/19 14:00 O2 Sat by Pulse Oximetry (%) 97 04/16/19 09:00 Constitutional: Yes: No Distress HENT: Yes: Atraumatic Neck: Yes: Supple Cardiovascular: Yes: Regular Rate and Rhythm Respiratory: Yes: CTA Bilaterally Gastrointestinal: Yes: Normal Bowel Sounds Extremities: Yes: WNL Edema: No Neurological: Yes: Alert, Oriented Labs: CBC, BMP 04/12/19 20:15 04/12/19 20:15 Discharge Summary Problems reviewed: Yes Reason For Visit: EXACERBATION OF ASTHMA Current Active Problems Asthma exacerbation (Acute) Chest pain (Acute) GERD (gastroesophageal reflux disease) (Acute) HTN (hypertension) (Acute) SUSAN (obstructive sleep apnea) (Acute) Old myocardial infarction (Acute) - Instructions - Home Medications Comprehensive Discharge Medication List: Ambulatory Orders Albuterol Sulfate [Proair Hfa -] 1 - 2 inh PO TID PRN 04/10/15 Isosorbide Mononitrate [Imdur -] 30 mg PO DAILY 04/10/15 Losartan/Hydrochlorothiazide [Losartan-Hctz 100-25 mg Tab] 1 each PO DAILY 04/10 Montelukast Na [Singulair -] 10 mg PO HS 04/10/15 Nifedipine [Nifedical Xl] 30 mg PO DAILY 04/10/15 Nitroglycerin [Nitrostat] 0.4 mg SL PRN 04/10/15 Pantoprazole Sodium [Protonix] 40 mg PO DAILY #30 tablet. 04/11/19 Prednisone 10 mg PO ASDIR #30 tablet 04/11/19 dc home fu pmd /pulmonary 2-3 days
== END 2019-04-16 19:09 | disposition home or self-care (01) | DRG 203 ==
LOC: JER 10:48 → JERBED 16:01 → OBSVTOIN 19:05 → J5S 20:09
PROVIDERS: ADMIT Internal Medicine; ATTEND Internal Medicine
DX: J45.41 Moderate persistent asthma with (acute) exacerbation (principal); I10 Essential (primary) hypertension; G47.33 Obstructive sleep apnea (adult) (pediatric); I25.2 Old myocardial infarction; R07.89 Other chest pain; I25.10 Atherosclerotic heart disease of native coronary artery without angina pectoris; I16.0 Hypertensive urgency; R42 Dizziness and giddiness; E66.9 Obesity, unspecified; Z68.38 Body mass index [BMI] 38.0-38.9, adult; K21.9 Gastro-esophageal reflux disease without esophagitis
CPT/HCPCS: 36415; 71046-TC-FY; 80053; 82550; 82553; 84484; 85025; 85610; 85730; 93005; 93010; 93306-TC; 94150; 94640; 99283-25; G0378

== ENCOUNTER 2020-11-17 10:54 | Inpatient (IN) | payer BC, OTHER ==
[2020-11-17] MEDS ORDERED: FAMOTIDINE 20 MG/50 ML IVPB 20 MG/50 ML MG IVPB ONE ×2 (11:34→11:44)
[2020-11-17] MEDS ORDERED: ACETAMINOPHEN 1000 MG/100 ML VIAL (NON FORMULARY) IVPB ONE (11:34)
[2020-11-17] MEDS ORDERED: ONDANSETRON 4 MG/2 ML VIAL IVPUSH ONE (11:34)
[2020-11-17] MEDS ORDERED: morphine CARPU-JECT 4 MG/1 ML DISP.SYRIN IVPUSH ONE ×2 (11:35→14:00)
[2020-11-17] MEDS ORDERED: ACETAMINOPHEN INJECTION 100 ML IVPB ONE (11:43)
[2020-11-17] MEDS ORDERED: morphine SULFATE 4 MG/ML VIAL ONE ×2 (11:43→14:10)
[2020-11-17] MEDS ORDERED: LACTATED RINGERS SOLUTION 1,000 ML/1,000 ML INFUS.BAG IV STA (11:44)
[2020-11-17] MEDS ORDERED: ONDANSETRON 4 MG/2 ML VIAL ONE (11:44)
[2020-11-17 11:49] LABS: BASO % 0.4 % (0-2.0); EOS % 0.1 % (0-4.5); HEMATOCRIT 43.1 % (32.4-45.2); LYMPH % 11.1 % (8-40); MCH 26.4 pg (25.7-33.7); MCHC 32.5 g/dl (32.0-36.0); MEAN CELL VOLUME 81.2 fl (80-96); MONO % 3.9 % (3.8-10.2); NEUT % 84.5 % (42.8-82.8); PLATELET COUNT 234 K/MM3 (134-434); RBC 5.31 M/mm3 (3.60-5.2); RDW 14.9 % (11.6-15.6); WHITE BLOOD COUNT 12.2 K/mm3 (4.0-10.0)
[2020-11-17 11:58] LABS: INR 1.06 (0.83-1.09)
[2020-11-17 12:01] LABS: ACTIVATED PTT 26.9 SECONDS (25.2-36.5)
[2020-11-17 12:07] LABS: CHLORIDE 106 mmol/L (98-107); SODIUM 139 mmol/L (136-145)
[2020-11-17 12:09] LABS: CALCIUM 9.3 mg/dL (8.5-10.1)
[2020-11-17 12:10] LABS: ALBUMIN 3.8 g/dl (3.4-5.0); ANION GAP 5 MMOL/L (8-16); BLOOD UREA NITROGEN 10.1 mg/dL (7-18); CO2 29 mmol/L (21-32); GLUCOSE,RANDOM 140 mg/dL (74-106); LIPASE 94 U/L (73-393); MAGNESIUM 1.9 mg/dL (1.8-2.4)
[2020-11-17 12:13] LABS: CREATININE 0.8 mg/dL (0.55-1.3); SGOT/AST 39 U/L (15-37); SGPT/ALT 46 U/L (13-61)
[2020-11-17 12:14] LABS: BILIRUBIN,TOTAL 0.5 mg/dL (0.2-1); TOT PROT 7.9 g/dl (6.4-8.2)
[2020-11-17 12:15] LABS: ALK PHOS 100 U/L (45-117)
[2020-11-17 12:26] LABS: EPI CELLS 13 /uL (0-25.1); HYALINE CASTS 0 /uL (0-3.1); URINE APPEARANCE CLEAR; URINE BACTERIA 469 /uL (0-1359); URINE BILIRUBIN NEGATIVE (NEGATIVE); URINE COLOR YELLOW; URINE GLUCOSE (UA) NEGATIVE (NEGATIVE); URINE KETONE NEGATIVE (NEGATIVE); URINE LEUK ESTERASE NEGATIVE (NEGATIVE); URINE NITRITE NEGATIVE (NEGATIVE); URINE PROTEIN 2+ (NEGATIVE); URINE RBC 99 /uL (0-23.9); URINE UROBILINOGEN 0.2 mg/dL (0.2-1.0); URINE WBC 12 /uL (0-25.8)
[2020-11-17] MEDS ORDERED: PIPERACILLIN/TAZOB 4.5 GM 4.5 GM in DEXTROSE 5%-WATER 100 ML IVPB ONE (14:02)
[2020-11-17] MEDS ORDERED: PIPERACILLIN/TAZOB 4.5 GM 4.5 GM/100 ML BAG IVPB ONE (14:21)
[2020-11-17] MEDS ORDERED: ONDANSETRON 4 MG/2 ML VIAL IVPUSH PRN (16:06)
[2020-11-17] MEDS ORDERED: METOPROLOL TARTRATE 5 MG/5 ML VIAL IVPUSH ONE (16:07)
[2020-11-17] MEDS ORDERED: ALBUTEROL SO4 HFA INHALER IH PRN (16:09)
[2020-11-17] MEDS ORDERED: ALBUTEROL SO4 2.5/IPRATROPIUM 0.5 INH SOL 3 ML VIAL.NEB. NEB ONE (17:11)
[2020-11-17] MEDS ORDERED: METOPROLOL TARTRATE 5 MG/5 ML VIAL IVPB ONE (17:11)
[2020-11-17] MEDS ORDERED: MORPHINE SULFATE 2 MG/ML VIAL IVPUSH ONE (17:11)
[2020-11-17] MEDS: PANTOPRAZOLE SODIUM 40 MG VIAL IVPUSH SCH (17:24)
[2020-11-17] MEDS: LACTATED RINGERS SOLUTION 1,000 ML IV SCH (17:25)
[2020-11-17] MEDS: MORPHINE SULFATE 2 MG/ML VIAL IVPUSH PRN (17:26)
[2020-11-17 19:28] VITALS: BMI 38.0
[2020-11-17] MEDS ORDERED: amLODIPine BESYLATE 5 MG TABLET (FP) PO ONE ×2 (20:52→21:17)
[2020-11-17] MEDS ORDERED: DEXTROSE 5%-WATER 100 ML IVPB ONE (21:03)
[2020-11-17] MEDS ORDERED: PIPERACILLIN/TAZOBACTAM 4.5 GM VIAL IVPB ONE (21:03)
[2020-11-17] MEDS ORDERED: hydrALAZINE HCL 20 MG/ML VIAL IVPUSH ONE (21:11)
[2020-11-17] MEDS: PIPERACILLIN/TAZOB 4.5 GM 4.5 GM in DEXTROSE 5%-WATER 100 ML IVPB SCH (21:14)
[2020-11-18] MEDS: MORPHINE SULFATE 2 MG/ML VIAL IVPUSH PRN ×3 (04:22→16:27)
[2020-11-18] MEDS ORDERED: PIPERACILLIN/TAZOBACTAM 4.5 GM VIAL IVPB ONE ×2 (05:35→14:52)
[2020-11-18] MEDS ORDERED: DEXTROSE 5%-WATER 100 ML IVPB ONE ×2 (05:36→14:53)
[2020-11-18] MEDS: PIPERACILLIN/TAZOB 4.5 GM 4.5 GM in DEXTROSE 5%-WATER 100 ML IVPB SCH ×2 (05:38→14:56)
[2020-11-18 07:59] LABS: BASO % 0.4 % (0-2.0); EOS % 0.2 % (0-4.5); HEMATOCRIT 45.5 % (32.4-45.2); MCH 26.6 pg (25.7-33.7); MCHC 32.9 g/dl (32.0-36.0); MEAN CELL VOLUME 80.8 fl (80-96); MEAN PLT VOLUME 8.9 fl (7.5-11.1); MONO % 8.2 % (3.8-10.2); NEUT % 77.2 % (42.8-82.8); PLATELET COUNT 233 K/MM3 (134-434); RBC 5.63 M/mm3 (3.60-5.2); RDW 14.7 % (11.6-15.6); WHITE BLOOD COUNT 15.9 K/mm3 (4.0-10.0)
[2020-11-18 08:11] LABS: ALBUMIN 3.2 g/dl (3.4-5.0); BLOOD UREA NITROGEN 9.4 mg/dL (7-18)
[2020-11-18 08:14] LABS: BILIRUBIN,TOTAL 1.9 mg/dL (0.2-1)
[2020-11-18 08:15] LABS: TOT PROT 7.4 g/dl (6.4-8.2)
[2020-11-18 08:24] LABS: CALCIUM 8.9 mg/dL (8.5-10.1); MAGNESIUM 1.8 mg/dL (1.8-2.4)
[2020-11-18] MEDS: PANTOPRAZOLE SODIUM 40 MG VIAL IVPUSH SCH (09:14)
[2020-11-18] MEDS ORDERED: ENOXAPARIN NA (PORCINE) 40 MG/0.4 ML DISP.SYRIN SQ SCH (10:00)
[2020-11-18] MEDS: LORATADINE 10 MG TABLET PO SCH (11:14)
[2020-11-18] MEDS: methylPREDNISolone NA SUCC 40 MG/1 ML VIAL IVPUSH SCH ×2 (11:14→18:08)
[2020-11-18] MEDS: LACTATED RINGERS SOLUTION 1,000 ML IV SCH ×2 (11:18→16:29)
[2020-11-18] MEDS: FLUTICASONE PROP 0.05% 16 GM NASAL SPRAY NS SCH (11:18)
[2020-11-18] MEDS: ACETAMINOPHEN 1000 MG/100 ML VIAL (NON FORMULARY) IVPB PRN ×2 (11:49→18:41)
[2020-11-18] MEDS: ALBUTEROL SO4 2.5/IPRATROPIUM 0.5 INH SOL 3 ML VIAL.NEB. NEB SCH ×3 (18:36→20:29)
[2020-11-18] MEDS ORDERED: oxyCODONE HCL 5 MG TABLET PO PRN (18:44)
[2020-11-18] MEDS: MONTELUKAST NA 10 MG TABLET PO SCH (21:24)
[2020-11-18] MEDS: ISOSORBIDE MONONITRATE 30 MG TAB.SR.24H (FP) PO SCH (21:24)
[2020-11-18] MEDS: BUDESONIDE/FORMETEROL FUMARATE 160/4.5 mcg INHALER IH SCH (22:33)
[2020-11-19] MEDS: methylPREDNISolone NA SUCC 40 MG/1 ML VIAL IVPUSH SCH ×3 (01:27→19:54)
[2020-11-19] MEDS: MORPHINE SULFATE 2 MG/ML VIAL IVPUSH PRN ×4 (04:33→21:18)
[2020-11-19 07:25] LABS: HEMATOCRIT 40.9 % (32.4-45.2); HEMOGLOBIN 13.7 GM/dL (10.7-15.3); MCH 27.1 pg (25.7-33.7); MCHC 33.5 g/dl (32.0-36.0); MEAN CELL VOLUME 80.8 fl (80-96); MEAN PLT VOLUME 9.3 fl (7.5-11.1); PLATELET COUNT 208 K/MM3 (134-434); RBC 5.06 M/mm3 (3.60-5.2); RDW 14.6 % (11.6-15.6); WHITE BLOOD COUNT 18.4 K/mm3 (4.0-10.0)
[2020-11-19 07:46] LABS: CALCIUM 8.7 mg/dL (8.5-10.1)
[2020-11-19 07:47] LABS: ALBUMIN 2.8 g/dl (3.4-5.0); BLOOD UREA NITROGEN 16.3 mg/dL (7-18)
[2020-11-19 07:49] LABS: CREATININE 0.9 mg/dL (0.55-1.3)
[2020-11-19 07:51] LABS: BILIRUBIN,TOTAL 1.1 mg/dL (0.2-1); TOT PROT 6.9 g/dl (6.4-8.2)
[2020-11-19] MEDS: ALBUTEROL SO4 2.5/IPRATROPIUM 0.5 INH SOL 3 ML VIAL.NEB. NEB SCH ×4 (08:15→20:40)
[2020-11-19] MEDS: PANTOPRAZOLE SODIUM 40 MG VIAL IVPUSH SCH (09:16)
[2020-11-19] MEDS: LORATADINE 10 MG TABLET PO SCH (09:17)
[2020-11-19] MEDS: BUDESONIDE/FORMETEROL FUMARATE 160/4.5 mcg INHALER IH SCH ×2 (09:17→21:20)
[2020-11-19] MEDS: FLUTICASONE PROP 0.05% 16 GM NASAL SPRAY NS SCH (09:17)
[2020-11-19] MEDS: NIFEdipine E.R. 30 MG TABLET PO SCH (09:17)
[2020-11-19] MEDS: ISOSORBIDE MONONITRATE 30 MG TAB.SR.24H (FP) PO SCH ×2 (09:17→21:13)
[2020-11-19] MEDS ORDERED: oxyCODONE HCL 5 MG TABLET PO PRN (10:05)
[2020-11-19] MEDS ORDERED: LACTATED RINGERS SOLUTION 1,000 ML/1,000 ML INFUS.BAG IV SCH (10:15)
[2020-11-19] MEDS ORDERED: DEXTROSE 5%-WATER 100 ML IVPB ONE ×2 (11:37→19:28)
[2020-11-19] MEDS ORDERED: PIPERACILLIN/TAZOBACTAM 4.5 GM VIAL IVPB ONE ×2 (11:37→19:28)
[2020-11-19] MEDS: PIPERACILLIN/TAZOB 4.5 GM 4.5 GM in DEXTROSE 5%-WATER 100 ML IVPB SCH ×2 (11:40→19:53)
[2020-11-19] MEDS: ACETAMINOPHEN 1000 MG/100 ML VIAL (NON FORMULARY) IVPB PRN (12:36)
[2020-11-19] MEDS ORDERED: LOSARTAN POTASSIUM 50 MG TABLET PO ONE (12:45)
[2020-11-19] MEDS ORDERED: HYDROCHLOROTHIAZIDE 25 MG TABLET (FP) PO ONE (12:45)
[2020-11-19] MEDS ORDERED: LOSARTAN 50MG/HCTZ 12.5MG 1 TAB PO ONE (13:00)
[2020-11-19 13:07] LABS: CHLORIDE 104 mmol/L (98-107); SODIUM 141 mmol/L (136-145)
[2020-11-19 13:11] LABS: ALBUMIN 2.9 g/dl (3.4-5.0); BLOOD UREA NITROGEN 19.1 mg/dL (7-18)
[2020-11-19 13:12] LABS: ANION GAP 7 MMOL/L (8-16); CO2 31 mmol/L (21-32); GLUCOSE,RANDOM 101 mg/dL (74-106)
[2020-11-19 13:14] LABS: SGOT/AST 57 U/L (15-37); SGPT/ALT 142 U/L (13-61)
[2020-11-19 13:15] LABS: CREATININE 0.9 mg/dL (0.55-1.3)
[2020-11-19 13:16] LABS: BILIRUBIN,TOTAL 0.9 mg/dL (0.2-1); TOT PROT 6.7 g/dl (6.4-8.2)
[2020-11-19 13:17] LABS: ALK PHOS 145 U/L (45-117)
[2020-11-19] MEDS: POTASSIUM CHLORIDE 10 MEQ in DEXTROSE 5%-NORMAL SALINE 1,000 ML IVPB SCH (16:21)
[2020-11-19] MEDS: MONTELUKAST NA 10 MG TABLET PO SCH (21:13)
[2020-11-20] MEDS ORDERED: DEXTROSE 5%-WATER 100 ML IVPB ONE ×3 (02:36→17:51)
[2020-11-20] MEDS ORDERED: PIPERACILLIN/TAZOBACTAM 4.5 GM VIAL IVPB ONE ×3 (02:36→17:51)
[2020-11-20] MEDS: methylPREDNISolone NA SUCC 40 MG/1 ML VIAL IVPUSH SCH ×3 (02:37→18:06)
[2020-11-20] MEDS: PIPERACILLIN/TAZOB 4.5 GM 4.5 GM in DEXTROSE 5%-WATER 100 ML IVPB SCH ×3 (02:42→18:07)
[2020-11-20] MEDS: POTASSIUM CHLORIDE 10 MEQ in DEXTROSE 5%-NORMAL SALINE 1,000 ML IVPB SCH ×3 (03:17→13:05)
[2020-11-20] MEDS: MORPHINE SULFATE 2 MG/ML VIAL IVPUSH PRN (03:43)
[2020-11-20] MEDS: ACETAMINOPHEN 1000 MG/100 ML VIAL (NON FORMULARY) IVPB PRN (07:42)
[2020-11-20] MEDS: ALBUTEROL SO4 2.5/IPRATROPIUM 0.5 INH SOL 3 ML VIAL.NEB. NEB SCH ×5 (08:40→20:57)
[2020-11-20 08:46] LABS: HEMOGLOBIN 12.9 GM/dL (10.7-15.3); MCH 26.5 pg (25.7-33.7); MCHC 33.1 g/dl (32.0-36.0); MEAN CELL VOLUME 80.1 fl (80-96); MEAN PLT VOLUME 9.5 fl (7.5-11.1); PLATELET COUNT 224 K/MM3 (134-434); RBC 4.87 M/mm3 (3.60-5.2); RDW 14.9 % (11.6-15.6); WHITE BLOOD COUNT 18.1 K/mm3 (4.0-10.0)
[2020-11-20 09:04] LABS: ALBUMIN 2.6 g/dl (3.4-5.0); CALCIUM 8.7 mg/dL (8.5-10.1)
[2020-11-20 09:05] LABS: BLOOD UREA NITROGEN 18.8 mg/dL (7-18); MAGNESIUM 2.4 mg/dL (1.8-2.4)
[2020-11-20 09:08] LABS: CREATININE 0.8 mg/dL (0.55-1.3); PHOSPHOROUS 2.6 mg/dL (2.5-4.9)
[2020-11-20 09:09] LABS: BILIRUBIN,TOTAL 0.6 mg/dL (0.2-1); TOT PROT 6.4 g/dl (6.4-8.2)
[2020-11-20] MEDS ORDERED: PT OWN MED DRAWER 7, Y5N ONE (10:29)
[2020-11-20] MEDS: LORATADINE 10 MG TABLET PO SCH (10:39)
[2020-11-20] MEDS: BUDESONIDE/FORMETEROL FUMARATE 160/4.5 mcg INHALER IH SCH ×2 (10:39→21:16)
[2020-11-20] MEDS: NIFEdipine E.R. 30 MG TABLET PO SCH (10:39)
[2020-11-20] MEDS: ISOSORBIDE MONONITRATE 30 MG TAB.SR.24H (FP) PO SCH ×2 (10:39→21:17)
[2020-11-20] MEDS: FLUTICASONE PROP 0.05% 16 GM NASAL SPRAY NS SCH (10:40)
[2020-11-20] MEDS: PANTOPRAZOLE SODIUM 40 MG VIAL IVPUSH SCH (10:40)
[2020-11-20] MEDS ORDERED: PROPOFOL 20 ML ONE ×3 (11:22→11:48)
[2020-11-20] MEDS ORDERED: ROCURONIUM BROMIDE 50 MG/5 ML SYRINGE ONE (11:22)
[2020-11-20] MEDS ORDERED: SUCCINYLCHOLINE CHLORIDE 200 MG/10 ML SYRINGE ONE (11:22)
[2020-11-20] MEDS ORDERED: MIDAZOLAM HCL 2 MG/2 ML SINGLE DOSE VIAL ONE (11:23)
[2020-11-20] MEDS ORDERED: oxyCODONE HCL 5 MG TABLET PO PRN (11:27)
[2020-11-20] MEDS ORDERED: morphine SULFATE 4 MG/ML VIAL IVPB PRN ×2 (11:27→16:41)
[2020-11-20] MEDS ORDERED: ONDANSETRON 4 MG/2 ML VIAL IVPUSH PRN (11:27)
[2020-11-20] MEDS ORDERED: LIDOCAINE HCL 2% JELLY (5 ML/TUBE) ONE (11:32)
[2020-11-20] MEDS ORDERED: DEXAMETHASONE SOD PHOSPHATE 4 MG/1 ML VIAL ONE (11:41)
[2020-11-20] MEDS ORDERED: NEOSTIGMINE METHYLSULFATE 0.5 MG/ML - 10 ML MDV ONE (12:04)
[2020-11-20] MEDS ORDERED: GLYCOPYRROLATE 0.2 MG/1 ML VIAL ONE (12:04)
[2020-11-20] MEDS ORDERED: BUPIVACAINE HCL/PF 0.5% (5 MG/ML) 30 ML VIAL IJ ONE (12:32)
[2020-11-20] MEDS: ACETAMINOPHEN 1000 MG/100 ML VIAL (NON FORMULARY) IVPB SCH ×2 (13:40→20:20)
[2020-11-20] MEDS ORDERED: ALBUTEROL SO4 HFA INHALER IH PRN (13:43)
[2020-11-20] MEDS ORDERED: THIAMINE HCL 200 MG/2 ML VIAL IVPB ONE (16:41)
[2020-11-20] MEDS: MORPHINE SULFATE 2 MG/ML VIAL IVPB PRN (18:38)
[2020-11-20] MEDS: MONTELUKAST NA 10 MG TABLET PO SCH (21:16)
[2020-11-21] MEDS ORDERED: PIPERACILLIN/TAZOBACTAM 4.5 GM VIAL IVPB ONE ×2 (01:56→09:13)
[2020-11-21] MEDS ORDERED: DEXTROSE 5%-WATER 100 ML IVPB ONE ×2 (01:56→09:14)
[2020-11-21] MEDS: methylPREDNISolone NA SUCC 40 MG/1 ML VIAL IVPUSH SCH ×2 (02:06→11:37)
[2020-11-21] MEDS: ACETAMINOPHEN 1000 MG/100 ML VIAL (NON FORMULARY) IVPB SCH ×2 (02:06→09:20)
[2020-11-21] MEDS: PIPERACILLIN/TAZOB 4.5 GM 4.5 GM in DEXTROSE 5%-WATER 100 ML IVPB SCH ×2 (02:06→09:19)
[2020-11-21] MEDS: MORPHINE SULFATE 2 MG/ML VIAL IVPB PRN (06:10)
[2020-11-21] MEDS: POTASSIUM CHLORIDE 10 MEQ in DEXTROSE 5%-NORMAL SALINE 1,000 ML IVPB SCH (06:11)
[2020-11-21] MEDS: ALBUTEROL SO4 2.5/IPRATROPIUM 0.5 INH SOL 3 ML VIAL.NEB. NEB SCH ×4 (08:15→20:05)
[2020-11-21 08:19] LABS: HEMATOCRIT 36.8 % (32.4-45.2); HEMOGLOBIN 12.1 GM/dL (10.7-15.3); MCH 26.6 pg (25.7-33.7); MCHC 32.7 g/dl (32.0-36.0); MEAN CELL VOLUME 81.3 fl (80-96); MEAN PLT VOLUME 9.2 fl (7.5-11.1); PLATELET COUNT 210 K/MM3 (134-434); RBC 4.52 M/mm3 (3.60-5.2); RDW 14.6 % (11.6-15.6); WHITE BLOOD COUNT 12.4 K/mm3 (4.0-10.0)
[2020-11-21 09:03] LABS: ALBUMIN 2.5 g/dl (3.4-5.0); BLOOD UREA NITROGEN 15.4 mg/dL (7-18); CALCIUM 8.6 mg/dL (8.5-10.1)
[2020-11-21 09:07] LABS: CREATININE 0.8 mg/dL (0.55-1.3)
[2020-11-21 09:08] LABS: BILIRUBIN,TOTAL 0.6 mg/dL (0.2-1); TOT PROT 6.1 g/dl (6.4-8.2)
[2020-11-21] MEDS: ENOXAPARIN NA (PORCINE) 40 MG/0.4 ML DISP.SYRIN SQ SCH (09:19)
[2020-11-21] MEDS: LORATADINE 10 MG TABLET PO SCH (09:20)
[2020-11-21] MEDS: ISOSORBIDE MONONITRATE 30 MG TAB.SR.24H (FP) PO SCH ×2 (09:20→21:07)
[2020-11-21] MEDS: NIFEdipine E.R. 30 MG TABLET PO SCH (09:20)
[2020-11-21] MEDS ORDERED: POLYETHYLENE GLYCOL 3350 119 GM BTL PO ONE (09:30)
[2020-11-21] MEDS ORDERED: PANTOPRAZOLE SODIUM 40 MG VIAL IVPUSH SCH (10:00)
[2020-11-21] MEDS: DOCUSATE SODIUM 100 MG CAPSULE (FP) PO SCH (11:39)
[2020-11-21] MEDS: FLUTICASONE PROP 0.05% 16 GM NASAL SPRAY NS SCH (11:40)
[2020-11-21] MEDS: BUDESONIDE/FORMETEROL FUMARATE 160/4.5 mcg INHALER IH SCH ×2 (11:40→21:07)
[2020-11-21] MEDS: PANTOPRAZOLE 20 MG TABLET PO SCH (12:59)
[2020-11-21] MEDS: predniSONE 20 MG TABLET (UD) PO SCH ×2 (12:59→21:07)
[2020-11-21] MEDS: AMOX TR/POT CLAV 875MG/125MG TABLETS (FP) PO SCH (17:52)
[2020-11-21] MEDS: MONTELUKAST NA 10 MG TABLET PO SCH (21:07)
[2020-11-21] MEDS: oxyCODONE HCL 5 MG TABLET PO PRN (21:12)
[2020-11-22] MEDS: oxyCODONE HCL 5 MG TABLET PO PRN ×2 (06:11→10:12)
[2020-11-22] MEDS: ALBUTEROL SO4 2.5/IPRATROPIUM 0.5 INH SOL 3 ML VIAL.NEB. NEB SCH ×4 (07:49→20:47)
[2020-11-22 08:26] LABS: HEMATOCRIT 38.5 % (32.4-45.2); HEMOGLOBIN 12.7 GM/dL (10.7-15.3); MCH 26.7 pg (25.7-33.7); MCHC 32.9 g/dl (32.0-36.0); MEAN CELL VOLUME 81.4 fl (80-96); MEAN PLT VOLUME 8.6 fl (7.5-11.1); PLATELET COUNT 238 K/MM3 (134-434); RBC 4.73 M/mm3 (3.60-5.2); RDW 14.8 % (11.6-15.6); WHITE BLOOD COUNT 10.2 K/mm3 (4.0-10.0)
[2020-11-22 08:33] LABS: ALBUMIN 2.6 g/dl (3.4-5.0); CALCIUM 8.9 mg/dL (8.5-10.1)
[2020-11-22 08:34] LABS: BLOOD UREA NITROGEN 15.3 mg/dL (7-18)
[2020-11-22 08:37] LABS: CREATININE 0.7 mg/dL (0.55-1.3)
[2020-11-22 08:38] LABS: BILIRUBIN,TOTAL 0.5 mg/dL (0.2-1); TOT PROT 6.4 g/dl (6.4-8.2)
[2020-11-22] MEDS: ENOXAPARIN NA (PORCINE) 40 MG/0.4 ML DISP.SYRIN SQ SCH (10:13)
[2020-11-22] MEDS: DOCUSATE SODIUM 100 MG CAPSULE (FP) PO SCH (10:13)
[2020-11-22] MEDS: AMOX TR/POT CLAV 875MG/125MG TABLETS (FP) PO SCH ×2 (10:13→17:22)
[2020-11-22] MEDS: NIFEdipine E.R. 30 MG TABLET PO SCH (10:13)
[2020-11-22] MEDS: ISOSORBIDE MONONITRATE 30 MG TAB.SR.24H (FP) PO SCH ×2 (10:13→21:24)
[2020-11-22] MEDS: PANTOPRAZOLE 20 MG TABLET PO SCH (10:13)
[2020-11-22] MEDS: predniSONE 20 MG TABLET (UD) PO SCH (10:13)
[2020-11-22] MEDS: LORATADINE 10 MG TABLET PO SCH (10:13)
[2020-11-22] MEDS: BUDESONIDE/FORMETEROL FUMARATE 160/4.5 mcg INHALER IH SCH ×2 (10:15→21:25)
[2020-11-22] MEDS: FLUTICASONE PROP 0.05% 16 GM NASAL SPRAY NS SCH (10:15)
[2020-11-22] MEDS ORDERED: PT OWN MED DRAWER 7, Y5N ONE (21:13)
[2020-11-22] MEDS: MONTELUKAST NA 10 MG TABLET PO SCH (21:24)
[2020-11-23] MEDS: oxyCODONE HCL 5 MG TABLET PO PRN (02:31)
[2020-11-23] MEDS: ALBUTEROL SO4 2.5/IPRATROPIUM 0.5 INH SOL 3 ML VIAL.NEB. NEB SCH ×4 (07:30→19:58)
[2020-11-23] MEDS: LORATADINE 10 MG TABLET PO SCH (09:05)
[2020-11-23] MEDS: AMOX TR/POT CLAV 875MG/125MG TABLETS (FP) PO SCH ×2 (09:05→17:26)
[2020-11-23] MEDS: NIFEdipine E.R. 30 MG TABLET PO SCH (09:06)
[2020-11-23] MEDS: DOCUSATE SODIUM 100 MG CAPSULE (FP) PO SCH (09:06)
[2020-11-23] MEDS: predniSONE 20 MG TABLET (UD) PO SCH (09:06)
[2020-11-23] MEDS: PANTOPRAZOLE 20 MG TABLET PO SCH (09:06)
[2020-11-23] MEDS: ISOSORBIDE MONONITRATE 30 MG TAB.SR.24H (FP) PO SCH ×2 (09:06→21:00)
[2020-11-23] MEDS: FLUTICASONE PROP 0.05% 16 GM NASAL SPRAY NS SCH (09:06)
[2020-11-23] MEDS: ENOXAPARIN NA (PORCINE) 40 MG/0.4 ML DISP.SYRIN SQ SCH (09:06)
[2020-11-23] MEDS: BUDESONIDE/FORMETEROL FUMARATE 160/4.5 mcg INHALER IH SCH ×2 (09:07→21:31)
[2020-11-23 09:16] LABS: HEMATOCRIT 39.8 % (32.4-45.2); MCH 26.5 pg (25.7-33.7); MCHC 32.6 g/dl (32.0-36.0); MEAN CELL VOLUME 81.1 fl (80-96); PLATELET COUNT 249 K/MM3 (134-434); RDW 14.5 % (11.6-15.6); WHITE BLOOD COUNT 12.8 K/mm3 (4.0-10.0)
[2020-11-23] MEDS ORDERED: predniSONE 20 MG TABLET (UD) PO SCH (10:00)
[2020-11-23 10:24] LABS: CALCIUM 8.9 mg/dL (8.5-10.1)
[2020-11-23 10:25] LABS: ALBUMIN 2.8 g/dl (3.4-5.0); BLOOD UREA NITROGEN 14.6 mg/dL (7-18)
[2020-11-23 10:28] LABS: CREATININE 0.7 mg/dL (0.55-1.3)
[2020-11-23 10:29] LABS: BILIRUBIN,TOTAL 0.6 mg/dL (0.2-1); TOT PROT 6.2 g/dl (6.4-8.2)
[2020-11-23] MEDS: MONTELUKAST NA 10 MG TABLET PO SCH (21:00)
[2020-11-24] MEDS ORDERED: morphine SULFATE 4 MG/ML VIAL IVPUSH PRN (00:15)
[2020-11-24] MEDS ORDERED: oxyCODONE HCL 5 MG TABLET PO ONE (00:27)
[2020-11-24 04:59] VITALS: PULSE 71
[2020-11-24 05:22] VITALS: BP 143/82; TEMP 98.2
[2020-11-24] MEDS: ALBUTEROL SO4 2.5/IPRATROPIUM 0.5 INH SOL 3 ML VIAL.NEB. NEB SCH ×2 (07:55→11:10)
[2020-11-24] MEDS: PANTOPRAZOLE 20 MG TABLET PO SCH (10:20)
[2020-11-24] MEDS: DOCUSATE SODIUM 100 MG CAPSULE (FP) PO SCH (10:21)
[2020-11-24] MEDS: predniSONE 20 MG TABLET (UD) PO SCH (10:21)
[2020-11-24] MEDS: NIFEdipine E.R. 30 MG TABLET PO SCH (10:21)
[2020-11-24] MEDS: ENOXAPARIN NA (PORCINE) 40 MG/0.4 ML DISP.SYRIN SQ SCH (10:21)
[2020-11-24] MEDS: ISOSORBIDE MONONITRATE 30 MG TAB.SR.24H (FP) PO SCH (10:21)
[2020-11-24] MEDS: LORATADINE 10 MG TABLET PO SCH (10:21)
[2020-11-24] MEDS: BUDESONIDE/FORMETEROL FUMARATE 160/4.5 mcg INHALER IH SCH (10:22)
[2020-11-24] MEDS: FLUTICASONE PROP 0.05% 16 GM NASAL SPRAY NS SCH (10:22)
[2020-11-24] MEDS ORDERED: oxyCODONE HCL 5 MG TABLET PO PRN (10:53)
== END 2020-11-24 16:27 | disposition home or self-care (01) | DRG 418 ==
LOC: JER 10:54 → JERBED 14:03 → J8W 16:36 → J6S 11-22 16:39 → J7W 11-23 17:54
PROVIDERS: ADMIT Internal Medicine; ATTEND Internal Medicine
PROC: 0FT44ZZ Resection of Gallbladder, Percutaneous Endoscopic Approach (ICD-10-PCS; principal; 2020-11-20 11:30)
DX: K80.00 Calculus of gallbladder with acute cholecystitis without obstruction (principal); J45.901 Unspecified asthma with (acute) exacerbation; D64.9 Anemia, unspecified; I10 Essential (primary) hypertension; J44.9 Chronic obstructive pulmonary disease, unspecified; G47.33 Obstructive sleep apnea (adult) (pediatric); K21.9 Gastro-esophageal reflux disease without esophagitis; I25.10 Atherosclerotic heart disease of native coronary artery without angina pectoris; H81.09 Meniere's disease, unspecified ear; E66.9 Obesity, unspecified; Z68.38 Body mass index [BMI] 38.0-38.9, adult; I16.0 Hypertensive urgency; R79.89 Other specified abnormal findings of blood chemistry
CPT/HCPCS: 36415; 71045-TC-FY; 71260-TC; 74177-TC; 74181-TC; 76705-TC; 80053; 81003; 82550; 82553; 83605; 83690; 83735; 84100; 84484; 85025; 85027; 85610; 85730; 86850; 86900; 86901; 87040; 87086; 87804; 88304-TC; 93005; 93010; 94150; 94640; 94760; 99285-25; C9803; J0131; Q9967; U0003; U0005

== ENCOUNTER 2021-01-03 21:46 | Emergency (ER) | payer OTHER ==
[2021-01-03 21:56] VITALS: BP 160/88; PULSE 87; TEMP 98.3; BMI 36.9
== END 2021-01-04 01:21 | disposition home or self-care (01) ==
LOC: JER 21:46
DX: R60.0 Localized edema (principal); M25.562 Pain in left knee
CPT/HCPCS: 73562-TC-LT-FY; 93971-TC; 99284-25

== ENCOUNTER 2021-03-28 13:34 | Inpatient (IN) | payer OTHER ==
[2021-03-28 16:32] LABS: BASO % 0.6 % (0-2.0); EOS % 2.4 % (0-4.5); HEMATOCRIT 39.8 % (32.4-45.2); HEMOGLOBIN 13.2 GM/dL (10.7-15.3); LYMPH % 28.1 % (8-40); MCH 26.7 pg (25.7-33.7); MCHC 33.2 g/dl (32.0-36.0); MEAN CELL VOLUME 80.4 fl (80-96); MEAN PLT VOLUME 8.5 fl (7.5-11.1); MONO % 6.6 % (3.8-10.2); NEUT % 62.3 % (42.8-82.8); PLATELET COUNT 250 10^3/uL (134-434); RBC 4.95 M/mm3 (3.60-5.2); RDW 14.5 % (11.6-15.6); WHITE BLOOD COUNT 8.3 K/mm3 (4.0-10.0)
[2021-03-28 16:39] LABS: INR 1.01 (0.83-1.09); PROTHROMBIN TIME (PATIENT) 12.4 SEC (9.7-13.0)
[2021-03-28 16:42] LABS: ACTIVATED PTT 26.9 SECONDS (25.2-36.5)
[2021-03-28] MEDS ORDERED: ONDANSETRON 4 MG/2 ML VIAL IVPUSH ONE (16:45)
[2021-03-28] MEDS ORDERED: MAG HYDROX/AL HYDROX/SIMETH 30 ML UNIT-DOSE CUP PO ONE (16:45)
[2021-03-28] MEDS ORDERED: FAMOTIDINE 20 MG/50 ML IVPB 20 MG/50 ML MG IVPB ONE ×2 (16:45→17:18)
[2021-03-28 16:53] LABS: CHLORIDE 105 mmol/L (98-107); SODIUM 141 mmol/L (136-145)
[2021-03-28 16:55] LABS: ANION GAP 5 MMOL/L (8-16); BLOOD UREA NITROGEN 12.5 mg/dL (7-18); CO2 32 mmol/L (21-32); GLUCOSE,RANDOM 89 mg/dL (74-106)
[2021-03-28 16:58] LABS: CREATININE 0.8 mg/dL (0.55-1.3); SGOT/AST 153 U/L (15-37); SGPT/ALT 164 U/L (13-61)
[2021-03-28 17:00] LABS: BILIRUBIN,TOTAL 0.4 mg/dL (0.2-1); TOT PROT 6.9 g/dl (6.4-8.2)
[2021-03-28 17:01] LABS: ALK PHOS 166 U/L (45-117)
[2021-03-28] MEDS ORDERED: ACETAMINOPHEN 1000 MG/100 ML VIAL (NON FORMULARY) IVPB ONE (17:12)
[2021-03-28] MEDS ORDERED: ALBUTEROL SO4 2.5/IPRATROPIUM 0.5 INH SOL 3 ML VIAL.NEB. NEB ONE ×2 (17:13→17:42)
[2021-03-28 17:17] LABS: LIPASE > 1500 U/L (73-393)
[2021-03-28] MEDS ORDERED: MAG HYDROX/AL HYDROX/SIMETH 30 ML UNIT-DOSE CUP ONE (17:17)
[2021-03-28] MEDS ORDERED: ONDANSETRON 4 MG/2 ML VIAL ONE (17:17)
[2021-03-28] MEDS ORDERED: morphine CARPU-JECT 4 MG/1 ML DISP.SYRIN IVPUSH ONE ×2 (17:22→20:03)
[2021-03-28] MEDS ORDERED: morphine SULFATE 4 MG/ML VIAL ONE ×2 (17:42→20:09)
[2021-03-28] MEDS ORDERED: ACETAMINOPHEN INJECTION 100 ML IVPB ONE (17:43)
[2021-03-29] LABS: TRIGLYCERIDES 90 mg/dL (0-150)
[2021-03-29] MEDS ORDERED: MORPHINE SULFATE 2 MG/ML VIAL IVPUSH PRN (01:19)
[2021-03-29] MEDS: LACTATED RINGERS SOLUTION 1,000 ML/1,000 ML INFUS.BAG IV SCH ×4 (01:30→19:48)
[2021-03-29 01:41] VITALS: BMI 37.6
[2021-03-29] MEDS: MORPHINE SULFATE 2 MG/ML VIAL IVPUSH PRN ×3 (02:02→21:50)
[2021-03-29] MEDS ORDERED: PATIENT'S OWN MEDICATION (NON-FORMULARY) (Losartan/Hydrochlorothiazide [Losartan-Hctz 100- PO SCH (10:00)
[2021-03-29] MEDS ORDERED: predniSONE 20 MG TABLET (UD) PO SCH (10:00)
[2021-03-29 12:01] LABS: EPI CELLS 7 /uL (0-25.1); HYALINE CASTS 1 /uL (0-3.1); PH,URINE 6.5 (5.0-8.0); URINE APPEARANCE CLEAR; URINE BACTERIA 14 /uL (0-1359); URINE BILIRUBIN 1+ (NEGATIVE); URINE COLOR DK YELLOW; URINE GLUCOSE (UA) NEGATIVE (NEGATIVE); URINE KETONE 1+ (NEGATIVE); URINE LEUK ESTERASE NEGATIVE (NEGATIVE); URINE NITRITE NEGATIVE (NEGATIVE); URINE PROTEIN TRACE (NEGATIVE); URINE RBC 56 /uL (0-23.9); URINE UROBILINOGEN 4.0 E.U/dl mg/dL (0.2-1.0); URINE WBC 17 /uL (0-25.8)
[2021-03-29] MEDS: ALBUTEROL SO4 2.5/IPRATROPIUM 0.5 INH SOL 3 ML VIAL.NEB. NEB PRN ×2 (12:20→20:56)
[2021-03-29] MEDS: ENOXAPARIN NA (PORCINE) 40 MG/0.4 ML DISP.SYRIN SQ SCH (12:21)
[2021-03-29] MEDS: methylPREDNISolone NA SUCC 40 MG/1 ML VIAL IVPUSH SCH (12:21)
[2021-03-29] MEDS: PANTOPRAZOLE SODIUM 40 MG VIAL IVPUSH SCH (12:22)
[2021-03-29] MEDS: HYDROCHLOROTHIAZIDE 25 MG TABLET (FP) PO SCH (12:22)
[2021-03-29] MEDS: LOSARTAN POTASSIUM 100 MG TABLET PO SCH (15:21)
[2021-03-29] MEDS ORDERED: KETOROLAC TROMETHAMINE 15 MG/ML VIAL IVPUSH ONE (23:58)
[2021-03-30] MEDS: LACTATED RINGERS SOLUTION 1,000 ML/1,000 ML INFUS.BAG IV SCH ×2 (01:16→17:25)
[2021-03-30] MEDS: MORPHINE SULFATE 2 MG/ML VIAL IVPUSH PRN (08:46)
[2021-03-30] MEDS: PANTOPRAZOLE SODIUM 40 MG VIAL IVPUSH SCH (09:52)
[2021-03-30] MEDS: methylPREDNISolone NA SUCC 40 MG/1 ML VIAL IVPUSH SCH (09:52)
[2021-03-30] MEDS: HYDROCHLOROTHIAZIDE 25 MG TABLET (FP) PO SCH (09:52)
[2021-03-30] MEDS: LOSARTAN POTASSIUM 100 MG TABLET PO SCH (09:53)
[2021-03-30] MEDS: ALBUTEROL SO4 2.5/IPRATROPIUM 0.5 INH SOL 3 ML VIAL.NEB. NEB PRN (10:18)
[2021-03-30] MEDS: ENOXAPARIN NA (PORCINE) 40 MG/0.4 ML DISP.SYRIN SQ SCH (10:33)
[2021-03-30 11:57] LABS: BASO % 0.5 % (0-2.0); EOS % 0.4 % (0-4.5); HEMATOCRIT 39.1 % (32.4-45.2); HEMOGLOBIN 13.1 GM/dL (10.7-15.3); LYMPH % 20.8 % (8-40); MCH 26.8 pg (25.7-33.7); MCHC 33.4 g/dl (32.0-36.0); MEAN CELL VOLUME 80.2 fl (80-96); MEAN PLT VOLUME 8.6 fl (7.5-11.1); MONO % 3.1 % (3.8-10.2); NEUT % 75.2 % (42.8-82.8); PLATELET COUNT 252 10^3/uL (134-434); RBC 4.88 M/mm3 (3.60-5.2); RDW 14.5 % (11.6-15.6); WHITE BLOOD COUNT 9.7 K/mm3 (4.0-10.0)
[2021-03-30 12:19] LABS: ALBUMIN 3.1 g/dl (3.4-5.0)
[2021-03-30 12:20] LABS: BLOOD UREA NITROGEN 14.1 mg/dL (7-18)
[2021-03-30 12:23] LABS: CREATININE 0.7 mg/dL (0.55-1.3); PHOSPHOROUS 2.5 mg/dL (2.5-4.9)
[2021-03-30 12:24] LABS: BILIRUBIN,TOTAL 0.7 mg/dL (0.2-1); TOT PROT 7.2 g/dl (6.4-8.2)
[2021-03-30] MEDS ORDERED: LACTATED RINGERS SOLUTION 1,000 ML/1,000 ML INFUS.BAG IV SCH (12:42)
[2021-03-30] MEDS ORDERED: TIOTROPIUM BROMIDE 2.5 MCG (SPIRIVA) RESPIMAT INHALER IH SCH (14:00)
[2021-03-30] MEDS ORDERED: PT OWN MED DRAWER 7, Y5N ONE (15:15)
[2021-03-30] MEDS: TIOTROPIUM BROMIDE 2.5 MCG (SPIRIVA) RESPIMAT INHALER IH SCH (15:19)
[2021-03-30] MEDS: ALBUTEROL SO4 HFA INHALER IH PRN (15:19)
[2021-03-30] MEDS ORDERED: ACETAMINOPHEN 325 MG TABLET (FP) PO ONE (17:00)
[2021-03-31] MEDS: LACTATED RINGERS SOLUTION 1,000 ML/1,000 ML INFUS.BAG IV SCH ×3 (01:39→18:15)
[2021-03-31 09:29] LABS: BASO % 0.6 % (0-2.0); EOS % 0.4 % (0-4.5); HEMATOCRIT 40.7 % (32.4-45.2); HEMOGLOBIN 13.5 GM/dL (10.7-15.3); LYMPH % 35.4 % (8-40); MCH 26.6 pg (25.7-33.7); MCHC 33.1 g/dl (32.0-36.0); MEAN CELL VOLUME 80.5 fl (80-96); MEAN PLT VOLUME 9.3 fl (7.5-11.1); MONO % 4.5 % (3.8-10.2); NEUT % 59.1 % (42.8-82.8); PLATELET COUNT 267 10^3/uL (134-434); RBC 5.06 M/mm3 (3.60-5.2); RDW 14.3 % (11.6-15.6); WHITE BLOOD COUNT 11.4 K/mm3 (4.0-10.0)
[2021-03-31 09:48] LABS: ALBUMIN 3.3 g/dl (3.4-5.0); BLOOD UREA NITROGEN 13.6 mg/dL (7-18); CALCIUM 9.7 mg/dL (8.5-10.1)
[2021-03-31 09:49] LABS: MAGNESIUM 1.9 mg/dL (1.8-2.4)
[2021-03-31 09:51] LABS: CREATININE 0.8 mg/dL (0.55-1.3); PHOSPHOROUS 2.7 mg/dL (2.5-4.9)
[2021-03-31 09:52] LABS: BILIRUBIN,TOTAL 0.6 mg/dL (0.2-1)
[2021-03-31 09:53] LABS: TOT PROT 7.6 g/dl (6.4-8.2)
[2021-03-31] MEDS: PANTOPRAZOLE SODIUM 40 MG VIAL IVPUSH SCH (10:07)
[2021-03-31] MEDS: methylPREDNISolone NA SUCC 40 MG/1 ML VIAL IVPUSH SCH (10:07)
[2021-03-31] MEDS: HYDROCHLOROTHIAZIDE 25 MG TABLET (FP) PO SCH (10:07)
[2021-03-31] MEDS: ENOXAPARIN NA (PORCINE) 40 MG/0.4 ML DISP.SYRIN SQ SCH (10:08)
[2021-03-31] MEDS: TIOTROPIUM BROMIDE 2.5 MCG (SPIRIVA) RESPIMAT INHALER IH SCH (10:08)
[2021-03-31] MEDS: LOSARTAN POTASSIUM 50 MG TABLET PO SCH (10:08)
[2021-03-31] MEDS ORDERED: ACETAMINOPHEN 1000 MG/100 ML VIAL (NON FORMULARY) IVPB ONE (20:21)
[2021-04-01] MEDS: LACTATED RINGERS SOLUTION 1,000 ML/1,000 ML INFUS.BAG IV SCH (06:24)
[2021-04-01 09:02] LABS: BASO % 0.5 % (0-2.0); EOS % 0.2 % (0-4.5); HEMATOCRIT 40.8 % (32.4-45.2); HEMOGLOBIN 13.4 GM/dL (10.7-15.3); LYMPH % 37.1 % (8-40); MCH 26.4 pg (25.7-33.7); MCHC 32.8 g/dl (32.0-36.0); MEAN CELL VOLUME 80.6 fl (80-96); MEAN PLT VOLUME 8.9 fl (7.5-11.1); MONO % 6.9 % (3.8-10.2); NEUT % 55.3 % (42.8-82.8); PLATELET COUNT 261 10^3/uL (134-434); RBC 5.07 M/mm3 (3.60-5.2); RDW 14.3 % (11.6-15.6); WHITE BLOOD COUNT 10.9 K/mm3 (4.0-10.0)
[2021-04-01 09:36] LABS: CALCIUM 9.9 mg/dL (8.5-10.1); MAGNESIUM 1.8 mg/dL (1.8-2.4)
[2021-04-01 09:37] LABS: BLOOD UREA NITROGEN 11.7 mg/dL (7-18); CREATININE 0.8 mg/dL (0.55-1.3)
[2021-04-01 09:38] LABS: TOT PROT 6.9 g/dl (6.4-8.2)
[2021-04-01 09:40] LABS: PHOSPHOROUS 2.5 mg/dL (2.5-4.9)
[2021-04-01 09:41] LABS: BILIRUBIN,TOTAL 0.5 mg/dL (0.2-1)
[2021-04-01] MEDS: ENOXAPARIN NA (PORCINE) 40 MG/0.4 ML DISP.SYRIN SQ SCH (10:19)
[2021-04-01] MEDS: PANTOPRAZOLE SODIUM 40 MG VIAL IVPUSH SCH (10:20)
[2021-04-01] MEDS: methylPREDNISolone NA SUCC 40 MG/1 ML VIAL IVPUSH SCH (10:20)
[2021-04-01] MEDS ORDERED: POTASSIUM CHLORIDE ORAL LIQUID 20 MEQ/15 ML PO ONE (10:42)
[2021-04-01] MEDS ORDERED: BUDESONIDE/FORMETEROL FUMARATE 160/4.5 mcg INHALER IH SCH (10:45)
[2021-04-01] MEDS: LOSARTAN POTASSIUM 50 MG TABLET PO SCH (12:14)
[2021-04-01] MEDS: HYDROCHLOROTHIAZIDE 25 MG TABLET (FP) PO SCH (12:17)
[2021-04-01] MEDS: POLYETHYLENE GLYCOL (HEALTHYLAX) 3350 17 GM PACKET PO SCH (12:18)
[2021-04-01] MEDS: TIOTROPIUM BROMIDE 2.5 MCG (SPIRIVA) RESPIMAT INHALER IH SCH (12:38)
[2021-04-01] MEDS ORDERED: ACETAMINOPHEN 1000 MG/100 ML VIAL (NON FORMULARY) IVPB ONE (13:56)
[2021-04-02] MEDS: LACTATED RINGERS SOLUTION 1,000 ML/1,000 ML INFUS.BAG IV SCH (02:25)
[2021-04-02] MEDS: ALBUTEROL SO4 HFA INHALER IH PRN (02:30)
[2021-04-02] MEDS ORDERED: INSULIN (NOVOLOG) ASPART 100 UNITS/ML 10ML VIAL ONE (06:41)
[2021-04-02 08:33] LABS: BASO % 0.6 % (0-2.0); EOS % 0.3 % (0-4.5); HEMATOCRIT 40.5 % (32.4-45.2); HEMOGLOBIN 13.4 GM/dL (10.7-15.3); LYMPH % 37.3 % (8-40); MCH 26.5 pg (25.7-33.7); MCHC 33.1 g/dl (32.0-36.0); MEAN PLT VOLUME 8.7 fl (7.5-11.1); MONO % 5.7 % (3.8-10.2); NEUT % 56.1 % (42.8-82.8); PLATELET COUNT 263 10^3/uL (134-434); RBC 5.06 M/mm3 (3.60-5.2); WHITE BLOOD COUNT 12.9 K/mm3 (4.0-10.0)
[2021-04-02 09:04] LABS: CREATININE 0.8 mg/dL (0.55-1.3); PHOSPHOROUS 2.9 mg/dL (2.5-4.9)
[2021-04-02 09:05] LABS: BILIRUBIN,TOTAL 0.6 mg/dL (0.2-1); TOT PROT 6.8 g/dl (6.4-8.2)
[2021-04-02 09:07] LABS: CALCIUM 9.8 mg/dL (8.5-10.1)
[2021-04-02] MEDS ORDERED: PT OWN MED DRAWER 7, Y5N ONE (09:07)
[2021-04-02 09:08] LABS: BLOOD UREA NITROGEN 14.6 mg/dL (7-18); MAGNESIUM 1.7 mg/dL (1.8-2.4)
[2021-04-02] MEDS: TIOTROPIUM BROMIDE 2.5 MCG (SPIRIVA) RESPIMAT INHALER IH SCH (10:09)
[2021-04-02] MEDS: LOSARTAN POTASSIUM 50 MG TABLET PO SCH (10:10)
[2021-04-02] MEDS: PANTOPRAZOLE SODIUM 40 MG VIAL IVPUSH SCH (10:10)
[2021-04-02] MEDS: methylPREDNISolone NA SUCC 40 MG/1 ML VIAL IVPUSH SCH (10:10)
[2021-04-02] MEDS: HYDROCHLOROTHIAZIDE 25 MG TABLET (FP) PO SCH (10:11)
[2021-04-02] MEDS: POLYETHYLENE GLYCOL (HEALTHYLAX) 3350 17 GM PACKET PO SCH ×2 (10:11→10:43)
[2021-04-02] MEDS: ENOXAPARIN NA (PORCINE) 40 MG/0.4 ML DISP.SYRIN SQ SCH (10:11)
[2021-04-02] MEDS ORDERED: CHOLESTYRAMINE/ASPARTAME 4 GM PACKET PO PRN ×2 (16:22→16:27)
[2021-04-02] MEDS ORDERED: HYDROCHLOROTHIAZIDE 12.5 MG CAPSULE (FP) PO SCH (16:25)
[2021-04-02] MEDS ORDERED: ACETAMINOPHEN 1000 MG/100 ML VIAL (NON FORMULARY) IVPB ONE (16:41)
[2021-04-02] MEDS: amLODIPine BESYLATE 10 MG TABLET (FP) PO SCH (16:51)
[2021-04-03 08:51] LABS: BASO % 0.6 % (0-2.0); EOS % 0.5 % (0-4.5); HEMOGLOBIN 13.8 GM/dL (10.7-15.3); LYMPH % 39.9 % (8-40); MCH 26.3 pg (25.7-33.7); MCHC 32.9 g/dl (32.0-36.0); MONO % 5.8 % (3.8-10.2); NEUT % 53.2 % (42.8-82.8); PLATELET COUNT 242 10^3/uL (134-434); RBC 5.25 M/mm3 (3.60-5.2); RDW 14.2 % (11.6-15.6); WHITE BLOOD COUNT 12.5 K/mm3 (4.0-10.0)
[2021-04-03 09:15] LABS: CALCIUM 9.2 mg/dL (8.5-10.1)
[2021-04-03 09:16] LABS: MAGNESIUM 1.8 mg/dL (1.8-2.4)
[2021-04-03 09:18] LABS: CREATININE 0.7 mg/dL (0.55-1.3); PHOSPHOROUS 3.3 mg/dL (2.5-4.9)
[2021-04-03 09:19] LABS: BLOOD UREA NITROGEN 10.7 mg/dL (7-18)
[2021-04-03 09:20] LABS: BILIRUBIN,TOTAL 0.4 mg/dL (0.2-1); TOT PROT 6.7 g/dl (6.4-8.2)
[2021-04-03 09:53] VITALS: BP 152/107; PULSE 74; TEMP 98.3
[2021-04-03] MEDS: amLODIPine BESYLATE 10 MG TABLET (FP) PO SCH (09:57)
[2021-04-03] MEDS: methylPREDNISolone NA SUCC 40 MG/1 ML VIAL IVPUSH SCH (09:57)
[2021-04-03] MEDS: ENOXAPARIN NA (PORCINE) 40 MG/0.4 ML DISP.SYRIN SQ SCH (09:58)
[2021-04-03] MEDS: LOSARTAN POTASSIUM 50 MG TABLET PO SCH (09:58)
[2021-04-03] MEDS: TIOTROPIUM BROMIDE 2.5 MCG (SPIRIVA) RESPIMAT INHALER IH SCH (10:03)
== END 2021-04-03 15:52 | disposition home or self-care (01) | DRG 439 ==
LOC: JER 13:34 → JERBED 20:59 → J8W 03-29 00:50
PROVIDERS: ADMIT Internal Medicine
DX: K85.10 Biliary acute pancreatitis without necrosis or infection (principal); J45.901 Unspecified asthma with (acute) exacerbation; I10 Essential (primary) hypertension; J44.9 Chronic obstructive pulmonary disease, unspecified; R94.5 Abnormal results of liver function studies; E66.01 Morbid (severe) obesity due to excess calories; Z68.37 Body mass index [BMI] 37.0-37.9, adult; K21.9 Gastro-esophageal reflux disease without esophagitis; R74.01 Elevation of levels of liver transaminase levels
CPT/HCPCS: 36415; 71046-TC-FY; 74181-TC; 76705-TC; 80053; 80061; 81003; 82550; 83036; 83690; 83735; 84100; 84478; 84484; 85025; 85610; 85730; 86704; 86705; 86706; 86707; 86708; 86709; 86850; 86900; 86901; 87340; 87350; 87517; 87522; 93005; 93010; 94010; 94640; 97116-GP; 97161-GP; 99285-25; C9803; J0131; U0003; U0005

== ENCOUNTER 2022-09-03 07:13 | Emergency (ER) | payer OTHER ==
[2022-09-03] MEDS ORDERED: predniSONE 20 MG TABLET (UD) PO ONE (08:18)
[2022-09-03] MEDS ORDERED: SODIUM CHLORIDE 0.9% 500 ML INFUS.BAG IV ONE (08:19)
[2022-09-03] MEDS ORDERED: ALBUTEROL SO4 2.5/IPRATROPIUM 0.5 INH SOL 3 ML VIAL.NEB. NEB ONE ×3 (08:31→11:40)
[2022-09-03] MEDS ORDERED: predniSONE 20 MG TABLET (UD) ONE (08:31)
[2022-09-03] MEDS: ALBUTEROL SO4 2.5/IPRATROPIUM 0.5 INH SOL 3 ML VIAL.NEB. NEB SCH ×2 (08:42→09:11)
[2022-09-03 08:47] LABS: BASO % 0.3 % (0-2.0); EOS % 0.8 % (0-4.5); HEMATOCRIT 44.1 % (32.4-45.2); HEMOGLOBIN 14.4 GM/dL (10.7-15.3); LYMPH % 14.7 % (8-40); MCH 26.3 pg (25.7-33.7); MCHC 32.6 g/dl (32.0-36.0); MEAN CELL VOLUME 80.6 fl (80-96); MEAN PLT VOLUME 8.3 fl (7.5-11.1); MONO % 4.6 % (3.8-10.2); NEUT % 79.6 % (42.8-82.8); PLATELET COUNT 243 10^3/uL (134-434); RBC 5.47 M/mm3 (3.60-5.2); RDW 15.1 % (11.6-15.6); WHITE BLOOD COUNT 11.4 K/mm3 (4.0-10.0)
[2022-09-03 09:10] LABS: ALBUMIN 3.3 g/dl (3.4-5.0); BLOOD UREA NITROGEN 18.1 mg/dL (7-18); CALCIUM 9.5 mg/dL (8.5-10.1)
[2022-09-03 09:13] LABS: CREATININE 0.9 mg/dL (0.55-1.3)
[2022-09-03 09:15] LABS: BILIRUBIN,TOTAL 0.5 mg/dL (0.2-1); TOT PROT 7.4 g/dl (6.4-8.2)
[2022-09-03 09:31] VITALS: TEMP 97; BMI 37.9
[2022-09-03 11:13] LABS: SODIUM 139 mmol/L (136-145)
[2022-09-03 11:14] LABS: CALCIUM 9.2 mg/dL (8.5-10.1)
[2022-09-03] MEDS ORDERED: MECLIZINE HCL 25 MG TABLET (FP) PO ONE (11:37)
[2022-09-03] MEDS ORDERED: MECLIZINE HCL 25 MG TABLET (FP) ONE (11:40)
[2022-09-03 12:14] VITALS: BP 157/73; PULSE 81; RESP 18
[2022-09-03 12:26] LABS: ALBUMIN 3.2 g/dl (3.4-5.0)
[2022-09-03 12:27] LABS: BLOOD UREA NITROGEN 15.3 mg/dL (7-18)
[2022-09-03 12:29] LABS: CREATININE 0.9 mg/dL (0.55-1.3)
[2022-09-03 12:31] LABS: BILIRUBIN,TOTAL 0.4 mg/dL (0.2-1); TOT PROT 7.7 g/dl (6.4-8.2)
== END 2022-09-03 14:12 | disposition home or self-care (01) ==
LOC: JER 07:13
PROC: 3E0F7GC Introduction of Other Therapeutic Substance into Respiratory Tract, Via Natural or Artificial Opening (ICD-10-PCS; principal; 2022-09-03)
DX: R06.02 Shortness of breath (principal); R53.83 Other fatigue
CPT/HCPCS: 0241U-QW; 36415; 71045-TC-FY; 80053; 82962; 84484; 85025; 93005; 93010; 94640; 99285-25

== ENCOUNTER 2022-10-16 02:37 | Observation (INO) | payer OTHER ==
[2022-10-16 02:58] VITALS: BMI 37.8
[2022-10-16] MEDS ORDERED: SODIUM CHLORIDE 0.9% 500 ML INFUS.BAG IV ONE (04:08)
[2022-10-16] MEDS ORDERED: ACETAMINOPHEN 1000 MG/100 ML BAG IVPB ONE (04:11)
[2022-10-16] MEDS ORDERED: ACETAMINOPHEN INJECTION 100 ML IVPB ONE (04:56)
[2022-10-16 05:44] LABS: BASO % 0.6 % (0-2.0); EOS % 0.5 % (0-4.5); HEMATOCRIT 42.2 % (32.4-45.2); HEMOGLOBIN 14.1 GM/dL (10.7-15.3); LYMPH % 14.3 % (8-40); MCH 26.5 pg (25.7-33.7); MCHC 33.3 g/dl (32.0-36.0); MEAN CELL VOLUME 79.4 fl (80-96); MEAN PLT VOLUME 8.8 fl (7.5-11.1); MONO % 6.5 % (3.8-10.2); NEUT % 78.1 % (42.8-82.8); PLATELET COUNT 206 10^3/uL (134-434); RBC 5.31 M/mm3 (3.60-5.2); RDW 15.1 % (11.6-15.6); WHITE BLOOD COUNT 12.6 K/mm3 (4.0-10.0)
[2022-10-16 05:56] LABS: INR 0.96 (0.83-1.09); PROTHROMBIN TIME (PATIENT) 11.1 SEC (9.7-13.0)
[2022-10-16 05:59] LABS: ACTIVATED PTT 24.4 SECONDS (25.2-36.5)
[2022-10-16 06:06] LABS: CALCIUM 9.4 mg/dL (8.5-10.1)
[2022-10-16 06:07] LABS: BLOOD UREA NITROGEN 14.9 mg/dL (7-18)
[2022-10-16 06:11] LABS: BILIRUBIN,TOTAL 0.4 mg/dL (0.2-1); CREATININE 0.8 mg/dL (0.55-1.3); TOT PROT 6.7 g/dl (6.4-8.2)
[2022-10-16] MEDS ORDERED: HYDROCORTISONE SOD SUCCINATE 100 MG/2 ML VIAL IVPUSH ONE (06:33)
[2022-10-16] MEDS ORDERED: methylPREDNISolone NA SUCC 125 MG/2 ML VIAL IVPUSH ONE (06:35)
[2022-10-16] MEDS ORDERED: ASPIRIN 81 MG CHEWABLE TABLETS PO ONE (07:26)
[2022-10-16] MEDS ORDERED: methylPREDNISolone NA SUCC 125 MG/2 ML VIAL ONE (08:20)
[2022-10-16] MEDS ORDERED: ALBUTEROL SO4 2.5/IPRATROPIUM 0.5 INH SOL 3 ML VIAL.NEB. NEB ONE ×2 (08:20→08:27)
[2022-10-16] MEDS ORDERED: ASPIRIN 81 MG CHEWABLE TABLETS ONE (08:20)
[2022-10-16] MEDS: ALBUTEROL SO4 2.5/IPRATROPIUM 0.5 INH SOL 3 ML VIAL.NEB. NEB SCH ×4 (08:30→09:12)
[2022-10-16] MEDS ORDERED: PATIENT'S OWN MEDICATION (NON-FORMULARY) (Meloxicam [Meloxicam] 7.5 MG Tablet) PO PRN (10:33)
[2022-10-16] MEDS ORDERED: ACETAMINOPHEN 325 MG TABLET (FP) PO PRN (10:35)
[2022-10-16] MEDS ORDERED: ACETAMINOPHEN 325 MG TABLET (FP) ONE (15:05)
[2022-10-16] MEDS ORDERED: LOSARTAN POTASSIUM 50 MG TABLET ONE (15:22)
[2022-10-16] MEDS: LOSARTAN POTASSIUM 50 MG TABLET PO SCH (15:30)
[2022-10-16 15:32] LABS: PH,URINE 7.5 (5.0-8.0); URINE APPEARANCE CLEAR; URINE BILIRUBIN NEGATIVE (NEGATIVE); URINE COLOR YELLOW; URINE GLUCOSE (UA) NEGATIVE (NEGATIVE); URINE KETONE NEGATIVE (NEGATIVE); URINE LEUK ESTERASE NEGATIVE (NEGATIVE); URINE NITRITE NEGATIVE (NEGATIVE); URINE PROTEIN NEGATIVE (NEGATIVE)
[2022-10-16] MEDS: HYDROCHLOROTHIAZIDE 12.5 MG CAPSULE (FP) PO SCH (18:43)
[2022-10-16] MEDS: amLODIPine BESYLATE 10 MG TABLET (FP) PO SCH (18:43)
[2022-10-16] MEDS ORDERED: RIMEGEPANT SULFATE 75 MG TAB.RAPDIS SL ONE (20:17)
[2022-10-16] MEDS ORDERED: HEPARIN NA (PORCINE) 5,000 UNITS/ML 1ML VIAL ONE (23:11)
[2022-10-16] MEDS ORDERED: metoPROLOL SUCCINATE 25 MG TAB.SR.24H (FP) PO ONE (23:11)
[2022-10-16] MEDS: HEPARIN NA (PORCINE) 5,000 UNITS/ML 1ML VIAL SQ SCH (23:16)
[2022-10-16] MEDS: BUDESONIDE/FORMETEROL FUMARATE 160/4.5 mcg INHALER IH SCH (23:16)
[2022-10-16] MEDS: TOPIRAMATE 25 MG TABLET PO SCH (23:16)
[2022-10-17 06:54] LABS: HEMATOCRIT 38.6 % (32.4-45.2); HEMOGLOBIN 12.9 GM/dL (10.7-15.3); MCH 26.2 pg (25.7-33.7); MCHC 33.4 g/dl (32.0-36.0); MEAN CELL VOLUME 78.6 fl (80-96); MEAN PLT VOLUME 8.7 fl (7.5-11.1); PLATELET COUNT 232 10^3/uL (134-434); RBC 4.91 M/mm3 (3.60-5.2); RDW 15.1 % (11.6-15.6); WHITE BLOOD COUNT 20.1 K/mm3 (4.0-10.0)
[2022-10-17 07:04] LABS: BLOOD UREA NITROGEN 16.1 mg/dL (7-18)
[2022-10-17 07:07] LABS: CREATININE 0.7 mg/dL (0.55-1.3)
[2022-10-17 07:08] LABS: BILIRUBIN,TOTAL 0.4 mg/dL (0.2-1)
[2022-10-17 07:09] LABS: TOT PROT 6.7 g/dl (6.4-8.2)
[2022-10-17 09:57] LABS: ANISOCYTOSIS 1+; MACROCYTOSIS 0
[2022-10-17] MEDS ORDERED: ALBUTEROL SO4 HFA INHALER IH SCH (10:00)
[2022-10-17] MEDS ORDERED: FLUTICASONE/UMECLIDIN/VILANTER(100-62.5-25 TRELEGY ELLIPTA) INAHLER IH SCH (10:00)
[2022-10-17] MEDS ORDERED: PRAMIPEXOLE DIHYDROCHLORIDE 0.25 MG TABLET PO SCH (10:00)
[2022-10-17] MEDS ORDERED: predniSONE 10 MG TABLET (UD) PO SCH (10:00)
[2022-10-17] MEDS ORDERED: MECLIZINE HCL 25 MG TABLET (FP) PO SCH (10:00)
[2022-10-17] MEDS ORDERED: ASPIRIN COATED 81 MG TABLET.EC PO SCH (10:00)
[2022-10-17] MEDS ORDERED: TIOTROPIUM BROMIDE 2.5 MCG (SPIRIVA) RESPIMAT INHALER IH SCH (10:00)
[2022-10-17] MEDS ORDERED: PANTOPRAZOLE 20 MG TABLET PO SCH (10:00)
[2022-10-17] MEDS ORDERED: ASPIRIN COATED 81 MG TABLET.EC ONE (10:21)
[2022-10-17] MEDS ORDERED: MECLIZINE HCL 25 MG TABLET (FP) ONE (10:21)
[2022-10-17] MEDS ORDERED: HYDROCHLOROTHIAZIDE 25 MG TABLET (FP) ONE (10:22)
[2022-10-17] MEDS ORDERED: predniSONE 10 MG TABLET (UD) ONE (10:22)
[2022-10-17] MEDS ORDERED: LOSARTAN POTASSIUM 50 MG TABLET ONE (10:22)
[2022-10-17] MEDS ORDERED: HEPARIN NA (PORCINE) 5,000 UNITS/ML 1ML VIAL ONE (10:22)
[2022-10-17] MEDS ORDERED: amLODIPine BESYLATE 10 MG TABLET (FP) ONE (10:22)
[2022-10-17] MEDS: LOSARTAN POTASSIUM 50 MG TABLET PO SCH (10:50)
[2022-10-17] MEDS: amLODIPine BESYLATE 10 MG TABLET (FP) PO SCH (10:51)
[2022-10-17] MEDS: HYDROCHLOROTHIAZIDE 12.5 MG CAPSULE (FP) PO SCH (10:51)
[2022-10-17] MEDS: BUDESONIDE/FORMETEROL FUMARATE 160/4.5 mcg INHALER IH SCH ×2 (10:51→23:28)
[2022-10-17] MEDS: HEPARIN NA (PORCINE) 5,000 UNITS/ML 1ML VIAL SQ SCH ×2 (10:51→23:28)
[2022-10-17] MEDS ORDERED: ALBUTEROL SO4 HFA INHALER IH ONE (10:53)
[2022-10-17] MEDS ORDERED: PANTOPRAZOLE 20 MG TABLET PO ONE (10:53)
[2022-10-17] MEDS ORDERED: TOPIRAMATE 25 MG TABLET ONE (10:54)
[2022-10-17] MEDS: TOPIRAMATE 25 MG TABLET PO SCH ×2 (10:55→23:27)
[2022-10-17] MEDS ORDERED: FAMOTIDINE 20 MG/50 ML IVPB 20 MG/50 ML MG IVPB ONE (14:48)
[2022-10-17] MEDS: FAMOTIDINE 20 MG/50 ML IVPB 20 MG/50 ML MG IVPB SCH ×2 (15:03→23:26)
[2022-10-17 15:19] VITALS: RESP 18
[2022-10-17] MEDS ORDERED: ACETAMINOPHEN 325 MG TABLET (FP) PO PRN (19:36)
[2022-10-18 08:12] LABS: BASO % 0.7 % (0-2.0); EOS % 0.4 % (0-4.5); HEMATOCRIT 39.1 % (32.4-45.2); HEMOGLOBIN 13.2 GM/dL (10.7-15.3); LYMPH % 36.9 % (8-40); MCH 26.5 pg (25.7-33.7); MCHC 33.7 g/dl (32.0-36.0); MEAN CELL VOLUME 78.8 fl (80-96); MEAN PLT VOLUME 8.6 fl (7.5-11.1); MONO % 4.9 % (3.8-10.2); NEUT % 57.1 % (42.8-82.8); PLATELET COUNT 230 10^3/uL (134-434); RBC 4.97 M/mm3 (3.60-5.2); RDW 15.2 % (11.6-15.6)
[2022-10-18 08:32] LABS: CALCIUM 9.7 mg/dL (8.5-10.1)
[2022-10-18 08:33] LABS: BLOOD UREA NITROGEN 14.9 mg/dL (7-18)
[2022-10-18 08:36] LABS: CREATININE 0.7 mg/dL (0.55-1.3)
[2022-10-18] MEDS ORDERED: PANTOPRAZOLE 20 MG TABLET PO SCH (10:00)
[2022-10-18] MEDS ORDERED: HYDROCHLOROTHIAZIDE 12.5 MG CAPSULE (FP) PO SCH (10:00)
[2022-10-18] MEDS ORDERED: PRAMIPEXOLE DIHYDROCHLORIDE 0.25 MG TABLET PO SCH (10:00)
[2022-10-18] MEDS ORDERED: MECLIZINE HCL 25 MG TABLET (FP) PO SCH (10:00)
[2022-10-18] MEDS ORDERED: TIOTROPIUM BROMIDE 2.5 MCG (SPIRIVA) RESPIMAT INHALER IH SCH (10:00)
[2022-10-18] MEDS ORDERED: ALBUTEROL SO4 HFA INHALER IH PRN (10:00)
[2022-10-18] MEDS ORDERED: ASPIRIN COATED 81 MG TABLET.EC PO SCH (10:00)
[2022-10-18] MEDS ORDERED: predniSONE 10 MG TABLET (UD) PO SCH (10:00)
[2022-10-18] MEDS ORDERED: LOSARTAN POTASSIUM 50 MG TABLET PO SCH (10:00)
[2022-10-18] MEDS ORDERED: amLODIPine BESYLATE 10 MG TABLET (FP) PO SCH (10:00)
[2022-10-18] MEDS: FAMOTIDINE 20 MG/50 ML IVPB 20 MG/50 ML MG IVPB SCH (10:23)
[2022-10-18] MEDS: TOPIRAMATE 25 MG TABLET PO SCH (10:24)
[2022-10-18] MEDS: HEPARIN NA (PORCINE) 5,000 UNITS/ML 1ML VIAL SQ SCH (10:25)
[2022-10-18] MEDS: BUDESONIDE/FORMETEROL FUMARATE 160/4.5 mcg INHALER IH SCH (10:27)
[2022-10-18 15:51] VITALS: BP 136/77; PULSE 78; TEMP 98.7
== END 2022-10-18 18:29 | disposition home or self-care (01) ==
LOC: JER 02:37 → UNDOADMOB 08:28 → JERBED 08:28 → INTOOBSV 10:36 → OBSVTOIN 10:36 → JERBED 10-17 13:02 → J7W 10-17 15:42
PROVIDERS: ADMIT Internal Medicine; ATTEND Internal Medicine
PROC: 3E033NZ Introduction of Analgesics, Hypnotics, Sedatives into Peripheral Vein, Percutaneous Approach (ICD-10-PCS; principal; 2022-10-17)
PROC: 3E0F7GC Introduction of Other Therapeutic Substance into Respiratory Tract, Via Natural or Artificial Opening (ICD-10-PCS; 2022-10-17)
PROC: 3E033GC Introduction of Other Therapeutic Substance into Peripheral Vein, Percutaneous Approach (ICD-10-PCS; 2022-10-17)
PROC: 3E023GC Introduction of Other Therapeutic Substance into Muscle, Percutaneous Approach (ICD-10-PCS; 2022-10-17)
DX: G43.109 Migraine with aura, not intractable, without status migrainosus (principal); J44.9 Chronic obstructive pulmonary disease, unspecified; G45.9 Transient cerebral ischemic attack, unspecified; I10 Essential (primary) hypertension; E66.01 Morbid (severe) obesity due to excess calories; Z68.37 Body mass index [BMI] 37.0-37.9, adult; I25.10 Atherosclerotic heart disease of native coronary artery without angina pectoris; I11.9 Hypertensive heart disease without heart failure; G25.81 Restless legs syndrome; K21.9 Gastro-esophageal reflux disease without esophagitis; Z88.8 Allergy status to other drugs, medicaments and biological substances; D64.9 Anemia, unspecified; H81.09 Meniere's disease, unspecified ear
CPT/HCPCS: 0241U-QW; 36415; 70450-TC; 71045-TC-FY; 76700-TC; 80048; 80053; 80061; 81003; 83690; 84484; 85025; 85610; 85730; 87086; 93005; 93010; 93880-TC; 94640; 96365; 96372; 96375; 97116-GP; 97162-GP; 99285-25; G0378; J1644

== ENCOUNTER 2023-04-06 09:12 | Observation (INO) | payer OTHER ==
[2023-04-06] MEDS ORDERED: ACETAMINOPHEN 325 MG TABLET (FP) PO ONE (09:34)
[2023-04-06] MEDS ORDERED: ACETAMINOPHEN 325 MG TABLET (FP) ONE (10:01)
[2023-04-06] MEDS ORDERED: MECLIZINE HCL 25 MG TABLET (FP) PO ONE (11:09)
[2023-04-06 12:03] LABS: POTASSIUM 5.1 mmol/L (3.5-5.1)
[2023-04-06 12:05] LABS: CALCIUM 9.6 mg/dL (8.5-10.1)
[2023-04-06 12:06] LABS: ALBUMIN 3.4 g/dl (3.4-5.0); BLOOD UREA NITROGEN 17.9 mg/dL (7-18)
[2023-04-06] MEDS ORDERED: ALBUTEROL SO4 2.5/IPRATROPIUM 0.5 INH SOL 3 ML VIAL.NEB. NEB ONE (12:06)
[2023-04-06] MEDS ORDERED: MECLIZINE HCL 25 MG TABLET (FP) ONE (12:07)
[2023-04-06 12:09] LABS: CREATININE 0.8 mg/dL (0.55-1.3)
[2023-04-06 12:10] LABS: TOT PROT 7.8 g/dl (6.4-8.2)
[2023-04-06 12:11] LABS: BILIRUBIN,TOTAL 0.4 mg/dL (0.2-1)
[2023-04-06] MEDS: ALBUTEROL SO4 2.5/IPRATROPIUM 0.5 INH SOL 3 ML VIAL.NEB. NEB SCH ×3 (12:21→13:22)
[2023-04-06 12:22] LABS: BASO % 0.9 % (0-2.0); EOS % 1.2 % (0-4.5); HEMATOCRIT 44.4 % (32.4-45.2); HEMOGLOBIN 14.9 GM/dL (10.7-15.3); LYMPH % 32.6 % (8-40); MCH 26.4 pg (25.7-33.7); MCHC 33.4 g/dl (32.0-36.0); MEAN CELL VOLUME 78.8 fl (80-96); MEAN PLT VOLUME 8.7 fl (7.5-11.1); MONO % 5.7 % (3.8-10.2); NEUT % 59.6 % (42.8-82.8); PLATELET COUNT 254 10^3/uL (134-434); RBC 5.63 M/mm3 (3.60-5.2); RDW 14.8 % (11.6-15.6)
[2023-04-06 12:29] LABS: WHITE BLOOD COUNT 14.7 K/mm3 (4.0-10.0)
[2023-04-06 12:56] LABS: INR 0.97 (0.83-1.09); PROTHROMBIN TIME (PATIENT) 11.3 SEC (9.7-13.0)
[2023-04-06 12:59] LABS: ACTIVATED PTT 24.9 SECONDS (25.2-36.5)
[2023-04-06 17:29] LABS: PH,URINE 5.5 (5.0-8.0); URINE APPEARANCE CLEAR; URINE BILIRUBIN NEGATIVE (NEGATIVE); URINE COLOR YELLOW; URINE GLUCOSE (UA) NEGATIVE (NEGATIVE); URINE KETONE NEGATIVE (NEGATIVE); URINE LEUK ESTERASE NEGATIVE (NEGATIVE); URINE NITRITE NEGATIVE (NEGATIVE); URINE PROTEIN NEGATIVE (NEGATIVE); URINE UROBILINOGEN 0.2 mg/dL (0.2-1.0)
[2023-04-06] MEDS ORDERED: ALBUTEROL SO4 2.5/IPRATROPIUM 0.5 INH SOL 3 ML VIAL.NEB. NEB PRN (19:50)
[2023-04-06 23:03] VITALS: BMI 35.2
[2023-04-07] MEDS ORDERED: ACETAMINOPHEN 325 MG TABLET (FP) PO ONE (03:01)
[2023-04-07] MEDS: ALBUTEROL SO4 2.5/IPRATROPIUM 0.5 INH SOL 3 ML VIAL.NEB. NEB SCH ×5 (07:56→20:14)
[2023-04-07 09:04] LABS: BASO % 0.8 % (0-2.0); HEMATOCRIT 41.5 % (32.4-45.2); HEMOGLOBIN 13.3 GM/dL (10.7-15.3); LYMPH % 35.8 % (8-40); MCH 25.8 pg (25.7-33.7); MEAN CELL VOLUME 80.5 fl (80-96); MEAN PLT VOLUME 8.7 fl (7.5-11.1); MONO % 5.7 % (3.8-10.2); NEUT % 54.7 % (42.8-82.8); PLATELET COUNT 218 10^3/uL (134-434); RBC 5.15 M/mm3 (3.60-5.2); RDW 14.7 % (11.6-15.6); WHITE BLOOD COUNT 9.9 K/mm3 (4.0-10.0)
[2023-04-07 09:36] LABS: POTASSIUM 3.7 mmol/L (3.5-5.1)
[2023-04-07 09:42] LABS: CALCIUM 8.7 mg/dL (8.5-10.1)
[2023-04-07 09:43] LABS: MAGNESIUM 1.8 mg/dL (1.8-2.4)
[2023-04-07 09:44] LABS: BLOOD UREA NITROGEN 12.5 mg/dL (7-18)
[2023-04-07 09:45] LABS: ALBUMIN 3.1 g/dl (3.4-5.0)
[2023-04-07 09:46] LABS: CREATININE 0.7 mg/dL (0.55-1.3)
[2023-04-07 09:47] LABS: PHOSPHOROUS 3.6 mg/dL (2.5-4.9)
[2023-04-07 09:48] LABS: TOT PROT 6.4 g/dl (6.4-8.2)
[2023-04-07 09:49] LABS: BILIRUBIN,TOTAL 0.6 mg/dL (0.2-1)
[2023-04-07] MEDS ORDERED: HYDROCHLOROTHIAZIDE 12.5 MG CAPSULE (FP) PO SCH (10:00)
[2023-04-07] MEDS: CARVEDILOL 6.25 MG TABLET (FP) PO SCH ×2 (11:51→22:32)
[2023-04-07] MEDS: amLODIPine BESYLATE 10 MG TABLET (FP) PO SCH (11:51)
[2023-04-07] MEDS: LOSARTAN POTASSIUM 50 MG TABLET PO SCH (11:51)
[2023-04-07] MEDS: ENOXAPARIN NA (PORCINE) 40 MG/0.4 ML DISP.SYRIN SQ SCH (11:52)
[2023-04-07] MEDS: ASPIRIN COATED 81 MG TABLET.EC PO SCH (15:25)
[2023-04-07] MEDS ORDERED: ROSUVASTATIN CA 20 MG TABLET PO SCH (22:00)
[2023-04-07] MEDS ORDERED: diphenhydrAMINE HCL 25 MG CAPSULE (FP) PO ONE (22:15)
[2023-04-08] MEDS: ALBUTEROL SO4 2.5/IPRATROPIUM 0.5 INH SOL 3 ML VIAL.NEB. NEB SCH ×3 (07:25→15:06)
[2023-04-08] MEDS: amLODIPine BESYLATE 10 MG TABLET (FP) PO SCH (10:11)
[2023-04-08] MEDS: ASPIRIN COATED 81 MG TABLET.EC PO SCH (10:11)
[2023-04-08] MEDS: LOSARTAN POTASSIUM 50 MG TABLET PO SCH (10:11)
[2023-04-08] MEDS: CARVEDILOL 6.25 MG TABLET (FP) PO SCH (10:11)
[2023-04-08] MEDS: ENOXAPARIN NA (PORCINE) 40 MG/0.4 ML DISP.SYRIN SQ SCH (13:00)
[2023-04-08 18:40] VITALS: BP 152/86; PULSE 80; RESP 20; TEMP 98.9
== END 2023-04-08 19:42 | disposition home or self-care (01) ==
LOC: JER 09:12 → INTOOBSV 15:42 → JERBED 15:42 → UNDOADMOB 15:42 → JERBED 16:44 → J4W 20:40
PROVIDERS: ADMIT Internal Medicine; ATTEND Internal Medicine
PROC: 3E0F7GC Introduction of Other Therapeutic Substance into Respiratory Tract, Via Natural or Artificial Opening (ICD-10-PCS; principal; 2023-04-06)
PROC: 3E023GC Introduction of Other Therapeutic Substance into Muscle, Percutaneous Approach (ICD-10-PCS; 2023-04-06)
DX: I16.0 Hypertensive urgency (principal); I67.4 Hypertensive encephalopathy; R42 Dizziness and giddiness; I11.9 Hypertensive heart disease without heart failure; J45.30 Mild persistent asthma, uncomplicated; I25.10 Atherosclerotic heart disease of native coronary artery without angina pectoris; D64.9 Anemia, unspecified; Z88.8 Allergy status to other drugs, medicaments and biological substances; R20.2 Paresthesia of skin; K57.90 Diverticulosis of intestine, part unspecified, without perforation or abscess without bleeding; Z91.199 Patient's noncompliance with other medical treatment and regimen due to unspecified reason; K21.9 Gastro-esophageal reflux disease without esophagitis; H81.09 Meniere's disease, unspecified ear; R00.2 Palpitations; I49.9 Cardiac arrhythmia, unspecified; Z90.49 Acquired absence of other specified parts of digestive tract; G47.33 Obstructive sleep apnea (adult) (pediatric); R26.81 Unsteadiness on feet; I25.2 Old myocardial infarction; R06.02 Shortness of breath; Z99.81 Dependence on supplemental oxygen
CPT/HCPCS: 36415; 70450-TC; 70551-TC; 71046-TC-FY; 80053; 80061; 81003; 83036; 83735; 84100; 84484; 85025; 85610; 85730; 86850; 86900; 86901; 87086; 93005; 93010; 93306-TC; 93880-TC; 94010; 94640; 94761; 96372; 97116-GP; 97162-GP; 99285-25; G0378

== ENCOUNTER 2024-04-08 15:00 | Observation (INO) | payer OTHER ==
[2024-04-08 15:22] VITALS: TEMP 98.8; BMI 34.0
[2024-04-08] MEDS ORDERED: ALBUTEROL SO4 2.5/IPRATROPIUM 0.5 INH SOL 3 ML VIAL.NEB. NEB ONE ×2 (16:24→22:27)
[2024-04-08] MEDS: ALBUTEROL SO4 2.5/IPRATROPIUM 0.5 INH SOL 3 ML VIAL.NEB. NEB ONE (16:30)
[2024-04-08] MEDS ORDERED: methylPREDNISolone NA SUCC 125 MG/2 ML VIAL ONE (16:30)
[2024-04-08] MEDS: methylPREDNISolone NA SUCC 125 MG/2 ML VIAL IVPUSH ONE (17:27)
[2024-04-08 17:52] LABS: BASO % 0.5 % (0-2.0); EOS % 1.4 % (0-4.5); HEMATOCRIT 41.7 % (32.4-45.2); HEMOGLOBIN 13.3 GM/dL (10.7-15.3); LYMPH % 35.5 % (8-40); MEAN CELL VOLUME 81.2 fl (80-96); MEAN PLT VOLUME 8.3 fl (7.5-11.1); MONO % 5.6 % (3.8-10.2); PLATELET COUNT 268 10^3/uL (134-434); RBC 5.13 M/mm3 (3.60-5.2); RDW 14.6 % (11.6-15.6); WHITE BLOOD COUNT 8.6 K/mm3 (4.0-10.0)
[2024-04-08 18:16] LABS: POTASSIUM 4.5 mmol/L (3.5-5.1)
[2024-04-08 18:17] LABS: CALCIUM 9.4 mg/dL (8.5-10.1)
[2024-04-08 18:18] LABS: ALBUMIN 3.1 g/dl (3.4-5.0); BLOOD UREA NITROGEN 12.6 mg/dL (7-18)
[2024-04-08 18:21] LABS: CREATININE 0.8 mg/dL (0.55-1.3)
[2024-04-08 18:23] LABS: BILIRUBIN,TOTAL 0.5 mg/dL (0.2-1)
[2024-04-08] MEDS ORDERED: OSELTAMIVIR PHOSPHATE 75 MG CAPSULE ONE (20:16)
[2024-04-08] MEDS: OSELTAMIVIR PHOSPHATE 75 MG CAPSULE PO ONE (20:21)
[2024-04-08] MEDS ORDERED: methylPREDNISolone NA SUCC 40 MG/1 ML VIAL ONE (22:19)
[2024-04-08] MEDS: methylPREDNISolone NA SUCC 40 MG/1 ML VIAL IVPUSH SCH (22:23)
[2024-04-08] MEDS: ALBUTEROL SO4 2.5/IPRATROPIUM 0.5 INH SOL 3 ML VIAL.NEB. NEB PRN (22:30)
[2024-04-08] MEDS ORDERED: MECLIZINE HCL 25 MG TABLET (FP) PO PRN (22:30)
[2024-04-08] MEDS ORDERED: ISOSORBIDE MONONITRATE 30 MG TAB.SR.24H (FP) PO ONE (22:58)
[2024-04-08] MEDS: ISOSORBIDE MONONITRATE 30 MG TAB.SR.24H (FP) PO SCH (23:22)
[2024-04-09] MEDS ORDERED: methylPREDNISolone NA SUCC 40 MG/1 ML VIAL ONE ×2 (04:07→09:12)
[2024-04-09] MEDS ORDERED: ACETAMINOPHEN 325 MG TABLET (FP) ONE ×2 (04:24→13:11)
[2024-04-09] MEDS: ACETAMINOPHEN 325 MG TABLET (FP) PO PRN ×2 (04:25→13:28)
[2024-04-09 05:43] VITALS: RESP 20
[2024-04-09 09:00] LABS: HEMOGLOBIN 13.8 GM/dL (10.7-15.3); MCH 26.5 pg (25.7-33.7); MCHC 32.9 g/dl (32.0-36.0); MEAN CELL VOLUME 80.5 fl (80-96); MEAN PLT VOLUME 8.4 fl (7.5-11.1); PLATELET COUNT 284 10^3/uL (134-434); RBC 5.22 M/mm3 (3.60-5.2); RDW 14.1 % (11.6-15.6); WHITE BLOOD COUNT 9.8 K/mm3 (4.0-10.0)
[2024-04-09] MEDS ORDERED: ALBUTEROL SO4 2.5/IPRATROPIUM 0.5 INH SOL 3 ML VIAL.NEB. NEB ONE ×2 (09:01→12:22)
[2024-04-09 09:11] LABS: POTASSIUM 4.5 mmol/L (3.5-5.1)
[2024-04-09] MEDS ORDERED: TOPIRAMATE 25 MG TABLET ONE (09:11)
[2024-04-09] MEDS ORDERED: ASPIRIN COATED 81 MG TABLET.EC ONE (09:11)
[2024-04-09] MEDS ORDERED: ENOXAPARIN NA (PORCINE) 40 MG/0.4 ML DISP.SYRIN SQ ONE (09:12)
[2024-04-09 09:21] LABS: ALBUMIN 3.2 g/dl (3.4-5.0); BLOOD UREA NITROGEN 15.9 mg/dL (7-18); CALCIUM 9.4 mg/dL (8.5-10.1); MAGNESIUM 2.1 mg/dL (1.8-2.4)
[2024-04-09 09:23] LABS: CREATININE 0.7 mg/dL (0.55-1.3); PHOSPHOROUS 2.8 mg/dL (2.5-4.9)
[2024-04-09 09:25] LABS: BILIRUBIN,TOTAL 0.4 mg/dL (0.2-1); TOT PROT 7.4 g/dl (6.4-8.2)
[2024-04-09] MEDS: ALBUTEROL SO4 2.5/IPRATROPIUM 0.5 INH SOL 3 ML VIAL.NEB. NEB SCH (09:38)
[2024-04-09] MEDS ORDERED: PATIENT'S OWN MEDICATION (NON-FORMULARY) (Fluticasone/Vilanterol 1 PUFF Inhaler) IH SCH (10:00)
[2024-04-09] MEDS: BUDESONIDE/FORMOTEROL FUMARATE 80-4.5 MCG (10.3 GM INHALER) IH SCH (12:00)
[2024-04-09 12:11] VITALS: BP 160/104; PULSE 90
[2024-04-09] MEDS: LOSARTAN POTASSIUM 50 MG TABLET PO SCH (12:13)
[2024-04-09] MEDS: ENOXAPARIN NA (PORCINE) 40 MG/0.4 ML DISP.SYRIN SQ SCH (12:13)
[2024-04-09] MEDS: HYDROCHLOROTHIAZIDE 12.5 MG CAPSULE (FP) PO SCH (12:13)
[2024-04-09] MEDS: ASPIRIN COATED 81 MG TABLET.EC PO SCH (12:13)
[2024-04-09] MEDS: PRAMIPEXOLE DIHYDROCHLORIDE 0.25 MG TABLET PO SCH (12:14)
[2024-04-09] MEDS: NIFEdipine E.R. 30 MG TABLET PO SCH (12:14)
[2024-04-09] MEDS: TOPIRAMATE 25 MG TABLET PO SCH (12:14)
[2024-04-09] MEDS ORDERED: MONTELUKAST NA 10 MG TABLET PO SCH (22:00)
[2024-04-09] MEDS ORDERED: OSELTAMIVIR PHOSPHATE 75 MG CAPSULE PO SCH (22:00)
== END 2024-04-09 16:11 | disposition home or self-care (01) ==
LOC: JER 15:00 → JERBED 19:03
PROVIDERS: ADMIT Internal Medicine; ATTEND Internal Medicine
PROC: 3E0F7GC Introduction of Other Therapeutic Substance into Respiratory Tract, Via Natural or Artificial Opening (ICD-10-PCS; principal; 2024-04-08)
PROC: 3E023GC Introduction of Other Therapeutic Substance into Muscle, Percutaneous Approach (ICD-10-PCS; 2024-04-08)
PROC: 3E033GC Introduction of Other Therapeutic Substance into Peripheral Vein, Percutaneous Approach (ICD-10-PCS; 2024-04-08)
DX: J09.X2 Influenza due to identified novel influenza A virus with other respiratory manifestations (principal); J44.1 Chronic obstructive pulmonary disease with (acute) exacerbation; J45.901 Unspecified asthma with (acute) exacerbation; I11.0 Hypertensive heart disease with heart failure; K21.9 Gastro-esophageal reflux disease without esophagitis; D64.9 Anemia, unspecified; Z90.49 Acquired absence of other specified parts of digestive tract; H81.09 Meniere's disease, unspecified ear; I25.2 Old myocardial infarction
CPT/HCPCS: 0241U-QW; 36415; 71045-TC-FY; 80053; 83735; 83880; 84100; 84484; 85025; 85027; 93005; 93010; 94640; 96372; 96374; 96376; 99285-25; G0378

== ENCOUNTER 2024-09-09 18:00 | Emergency (ER) | payer OTHER ==
[2024-09-09 18:06] VITALS: BMI 33.6
[2024-09-09 18:58] VITALS: RESP 22; TEMP 98.8
[2024-09-09] MEDS ORDERED: ALBUTEROL SO4 2.5/IPRATROPIUM 0.5 INH SOL 3 ML VIAL.NEB. NEB ONE (19:31)
[2024-09-09] MEDS ORDERED: DEXAMETHASONE 4 MG TABLET (FP) ONE (19:32)
[2024-09-09] MEDS: DEXAMETHASONE 4 MG TABLET (FP) PO ONE (19:37)
[2024-09-09] MEDS: ALBUTEROL SO4 2.5/IPRATROPIUM 0.5 INH SOL 3 ML VIAL.NEB. NEB SCH (19:37)
[2024-09-09] MEDS: ALBUTEROL SO4 2.5/IPRATROPIUM 0.5 INH SOL 3 ML VIAL.NEB. NEB ONE (19:37)
[2024-09-09 21:20] LABS: POTASSIUM 3.5 mmol/L (3.5-5.1)
[2024-09-09 21:21] LABS: CALCIUM 9.4 mg/dL (8.5-10.1)
[2024-09-09 21:22] LABS: ALBUMIN 3.3 g/dl (3.4-5.0)
[2024-09-09 21:27] LABS: BILIRUBIN,TOTAL 0.4 mg/dL (0.2-1); TOT PROT 7.4 g/dl (6.4-8.2)
[2024-09-09 21:30] LABS: BASO % 1.4 % (0-2.0); EOS % 1.4 % (0-4.5); HEMATOCRIT 42.8 % (32.4-45.2); HEMOGLOBIN 13.8 GM/dL (10.7-15.3); LYMPH % 34.2 % (8-40); MCH 26.4 pg (25.7-33.7); MCHC 32.1 g/dl (32.0-36.0); MEAN CELL VOLUME 82.2 fl (80-96); MEAN PLT VOLUME 8.8 fl (7.5-11.1); MONO % 5.9 % (3.8-10.2); NEUT % 57.1 % (42.8-82.8); PLATELET COUNT 229 10^3/uL (134-434); RBC 5.21 M/mm3 (3.60-5.2); RDW 14.3 % (11.6-15.6); WHITE BLOOD COUNT 10.7 K/mm3 (4.0-10.0)
[2024-09-09] MEDS ORDERED: CEFTRIAXONE 1 G/50 ML PREMIX 50 ML IVPB ONE (22:03)
[2024-09-09 22:05] VITALS: BP 186/90; PULSE 94
[2024-09-09] MEDS ORDERED: NIFEdipine E.R. 30 MG TABLET PO ONE (22:06)
[2024-09-09] MEDS ORDERED: LOSARTAN POTASSIUM 50 MG TABLET ONE (22:06)
[2024-09-09] MEDS: CEFTRIAXONE 1 GM in DEXTROSE 5%-WATER - 50 ML IVPB ONE (22:09)
[2024-09-09] MEDS: LOSARTAN POTASSIUM 50 MG TABLET PO ONE (22:09)
[2024-09-09] MEDS: NIFEdipine E.R. 30 MG TABLET PO ONE (22:10)
[2024-09-09] MEDS: AZITHROMYCIN IVPB 500 MG in DEXTROSE 5%-WATER - 250 ML IVPB ONE (22:13)
[2024-09-09] MEDS ORDERED: AZITHROMYCIN IVPB 500 MG/250 ML BAG IVPB ONE (22:14)
[2024-09-09] MEDS ORDERED: ACETAMINOPHEN 325 MG TABLET (FP) ONE (23:29)
[2024-09-09] MEDS: ACETAMINOPHEN 325 MG TABLET (FP) PO ONE (23:32)
[2024-09-10] MEDS ORDERED: NIFEdipine E.R. 30 MG TABLET PO SCH (10:00)
[2024-09-10] MEDS ORDERED: NIFEdipine E.R. 30 MG TABLET PO ONE (10:00)
== END 2024-09-09 23:44 | disposition home or self-care (01) ==
LOC: JER 18:00
PROC: 3E03329 Introduction of Other Anti-infective into Peripheral Vein, Percutaneous Approach (ICD-10-PCS; principal; 2024-09-09)
PROC: 3E03329 Introduction of Other Anti-infective into Peripheral Vein, Percutaneous Approach (ICD-10-PCS; 2024-09-09)
PROC: 3E0F7GC Introduction of Other Therapeutic Substance into Respiratory Tract, Via Natural or Artificial Opening (ICD-10-PCS; 2024-09-09)
DX: J18.9 Pneumonia, unspecified organism (principal); R06.02 Shortness of breath; R05.9 Cough, unspecified; R09.81 Nasal congestion; Z20.822 Contact with and (suspected) exposure to COVID-19
CPT/HCPCS: 0241U-QW; 36415; 71046-TC-FY; 80053; 83880; 84484; 85025; 93005; 93010; 94640; 96365; 96367; 99285-25